=== PATIENT | female | born 1980 | race Caucasian/White ===

== ENCOUNTER → 2017-01-17 | Outpatient (CLI) | payer MEDICAID ==
[~2017-01-17] MED LIST: ALPR.5T PO; ALPR1T PO; AMPH20TA2 PO; AMPH30TA2 PO; ASP81CT; BUPR300T; CATHETER FLUSH 10 ML SYR IV PRN; CYCL10TA9; HYDR-34 PO; HYDR-757 PO; IBP600T1 PO; IOHEXOL 350 MG/ML 100 ML (OMNIPAQUE 350) VIAL IV ONE; METH4TAB PO; NS 100 ML (IVPB) BAG IV ONE; OMG1KC; PHEN37.555; PRD20T PO; PRED10TA PO; PREN1TAB39 PO; Prenatal Vitamin; SITA1TAB6; TRAM-42 PO
--- NOTE | 2017-01-17 12:06 | Diagnostic Imaging Report ---
PROCEDURE: CT abdomen and pelvis with contrast. TECHNIQUE: Multiple contiguous axial images were obtained through the abdomen and pelvis after administration of intravenous contrast. INDICATION: Constipation, abdominal pain. 100 mL of Omnipaque 350 is administered intravenously. FINDINGS: The lung bases demonstrate no significant consolidation. The liver, the spleen, the adrenal glands, the pancreas, and adrenals appear unremarkable. The kidneys have symmetric enhancement and contrast excretion. There is no hydronephrosis. The urinary bladder appears unremarkable. The abdominal aorta is normal in caliber. No para-aortic significantly enlarged lymph node is seen. There is a tiny fat-containing umbilical hernia. There is no bowel obstruction. Small amounts of fecal material seen in the colon. There is a suture line seen near the base of the cecum presumably related to prior appendectomy. Correlate with surgical history. The uterus and adnexa appear grossly unremarkable. Suture material is suggested near the right adnexa. The osseous structures demonstrate prominent S-shaped scoliosis in the thoracolumbar spine convex to the right in the lumbar spine. IMPRESSION: 1. Tiny fat-containing umbilical hernia. 2. Prominent S-shaped thoracolumbar scoliosis. Dictated by: Dictated on workstation # [id number]
== END ==
LOC: RAD 09:22
PROVIDERS: ATTEND Family Medicine
DX: K59.00 Constipation, unspecified (principal)
CPT/HCPCS: 74177

== ENCOUNTER → 2017-05-05 | Outpatient (CLI) | payer BC, MEDICAID ==
[~2017-05-05] MED LIST changes: -CATHETER FLUSH 10 ML SYR IV PRN; -IOHEXOL 350 MG/ML 100 ML (OMNIPAQUE 350) VIAL IV ONE; -NS 100 ML (IVPB) BAG IV ONE
--- NOTE | 2017-05-05 13:40 | Diagnostic Imaging Report ---
PROCEDURE: MRI right joint lower extremity without contrast. TECHNIQUE: Multiplanar, multisequence non contrast-enhanced MRI of the right lower extremity was accomplished. INDICATION: Right knee pain. FINDINGS: There is no significant joint effusion and no Smith's cyst. The extensor mechanism is normal. The ACL and the PCL are both normal. There is a complex tear involving the posterior horn of the medial meniscus extending to the body and to the posterior root. The lateral meniscus is normal. The MCL and the lateral collateral ligament complex appear intact. There is a mild marrow edema seen in the medial tibial condyle. Parallel to the surface of the medial tibial plateau with subchondral sclerosis seen underneath the surface. There is no loss of congruity of the joint or cortical step-off however. This could be sequela of prior injury, perhaps a late subacute contusion and minimal cortical impaction of the medial plateau. There are no cartilage defects or injury identified. There is however fissuring in the medial compartment cartilage. The lateral compartment cartilage appears intact. The patellofemoral compartment cartilage demonstrates mild fissuring and increased signal particularly in the lateral facet. The muscles around the knee have normal signal and bulk. IMPRESSION: 1. Complex tear involving the posterior horn of the medial meniscus with extension to the root and to the body of the meniscus. 2. Mild marrow edema and low intensity at the subcortical bone in the medial tibial plateau is favored to be secondary to a late subacute injury. 3. 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 Dictated by: Dictated on workstation # [id number]
== END ==
LOC: RAD 10:59
PROVIDERS: ATTEND Family Medicine
DX: S83.231A Complex tear of medial meniscus, current injury, right knee, initial encounter (principal); M17.11 Unilateral primary osteoarthritis, right knee; X58.XXXA Exposure to other specified factors, initial encounter; Y99.8 Other external cause status
CPT/HCPCS: 73721

== ENCOUNTER → 2017-09-01 | Outpatient (CLI) | payer BC ==
--- NOTE | 2017-09-01 14:44 | Diagnostic Imaging Report ---
Transabdominal and transvaginal pelvic ultrasound. INDICATION: Pelvic pain. FINDINGS: The uterus is 7.4 x 4.4 x 4 cm. The endometrial stripe is 0.9 cm in thickness. The myometrium is slightly heterogeneous with no focal mass. The right ovary is 3.9 x 4 x 3.2 cm. The left ovary is 2.8 x 3.2 x 1.9 cm. There is a right ovarian cyst measuring 3.5 x 4 x 3.2 cm with mild internal septation but otherwise no definite solid nodule or internal vascularity. There are arterial and venous waveforms demonstrated in the ovarian tissue around this lesion. The left ovary demonstrates a 1.3 cm dominant follicle with simple appearance and normal vascularity. IMPRESSION: Mildly complicated cystic lesion in the right ovary is seen measuring up to 4 CM in size. A follow-up exam in six weeks is recommended to ensure resolution. Dictated by: Dictated on workstation # [id number]
== END ==
LOC: RAD 11:58
PROVIDERS: ATTEND Nurse Practitioner
DX: N83.201 Unspecified ovarian cyst, right side (principal); N91.2 Amenorrhea, unspecified
CPT/HCPCS: 76830; 76856

== ENCOUNTER 2017-09-20 10:36 | Emergency (ER) | payer BC ==
[~2017-09-20] VITALS: Ht 157.5 cm; Wt 91.6 kg
[2017-09-20 11:00] LABS: BASOPHILS % (AUTO) 0 % (0-10); EOSINOPHILS % (AUTO) 0 % (0-10); LYMPHOCYTES # (AUTO) 1.5 X 10^3 (1.0-4.0); LYMPHOCYTES % (AUTO) 10 % (12-44); MEAN CORPUSCULAR HEMOGLOBIN 32 PG (25-34); MEAN CORPUSCULAR HGB CONC 36 G/DL (32-36); MEAN CORPUSCULAR VOLUME 89 FL (80-99); MEAN PLATELET VOLUME 8.9 FL (7.4-10.4); MONOCYTES # (AUTO) 0.7 X 10^3 (0.0-1.0); MONOCYTES % (AUTO) 5 % (0-12); NEUTROPHILS # (AUTO) 12.4 X 10^3 (1.8-7.8); NEUTROPHILS % (AUTO) 85 % (42-75); PLATELET COUNT 242 10^3/uL (130-400); RED BLOOD COUNT 4.15 10^6/uL (4.35-5.85); RED CELL DISTRIBUTION WIDTH 11.8 % (10.0-14.5); WHITE BLOOD COUNT 14.6 10^3/uL (4.3-11.0)
[2017-09-20] MEDS ORDERED: ASPIRIN 81 MG CHEW (CHILDREN'S ASA) PO ONE (11:00)
--- NOTE | 2017-09-20 11:12 | ED Chest Pain ---
General Chief Complaint: Respiratory Problems Stated Complaint: SOA/CHEST DISCOMFORT Source: patient Exam Limitations: no limitations History of Present Illness Time seen by provider: 11:09 Initial Comments To ER with reports of shortness of breath and chest discomfort. She's had these symptoms since 5 p.m. last night when leaving work. The discomfort extends from the xiphoid process inferiorly down to the mid abdomen. She has tightness between her shoulder blades and tightness in her neck. She also reports that her chest feels tight and she is short of breath. Because of a very strong family history of cardiac disease including father with NC at the age of 44 and uncle who at the age of mid 30s she states, she had a heart catheter done here in [address] Bryant. This showed angiographically normal coronary arteries. She denies any unilateral leg swelling. No history of DVT. She did just start oral contraceptive use 2 days ago and has only had 2 doses. Timing/Duration: 12-24 hours Severity/Quality: pressure Activities at Onset: none ASA po LOAN SECRETARY: No NTG SL LOAN SECRETARY: No Associated Symptoms: shortness of breath Allergies and Home Medications Allergies Coded Allergies: No Known Drug Allergies (Verified , 12/12/07) Home Medications Atorvastatin Calcium 20 Mg Tablet, 20 MG PO HS, #30 Prescribed by: CEASAR VALDEZ on 09/20/17 8050 [[place]] , (Reported) Review of Systems Constitutional: see HPI EENTM: No Symptoms Reported Respiratory: See HPI, Denies Cough, Denies Orthopnea, Shortness of Air, Denies Wheezing Cardiovascular: See HPI, Chest Pain Gastrointestinal: See HPI, Abdominal Pain, Nausea, Vomiting Genitourinary: No Symptoms Reported Musculoskeletal: no symptoms reported Skin: no symptoms reported Psychiatric/Neurological: No Symptoms Reported Endocrine: No Symptoms Reported Hematologic/Lymphatic: No Symptoms Reported Past Hdiikyf-Xipjez-Dxelsp Hx Patient Social History Type Used: Cigarettes Recent Foreign Travel: No Contact w/Someone Who Travel: No Recent Hopitalizations: Yes (12/12/07 ECTOPICAL ) Immunizations Up To Date Tetanus Booster (TDap): Less than 5yrs Date of Influenza Vaccine: Jul 31, 2013 Seasonal Allergies Seasonal Allergies: No Surgeries Surgeries: Adenoidectomy, Appendectomy, Cardiac, Ear Surgery, Orthopedic, Tonsillectomy Cardiovascular Cardiac Disorders: Heart Murmur Reproductive System Hx Reproductive Disorders: Yes (ECTOPIC ) Sexually Transmitted Disease: No HIV/AIDS: No Female Reproductive Disorders: Denies Gastrointestinal Gastrointestinal Disorders: Gastroesophageal Reflux Musculoskeletal Musculoskeletal Disorders: Scoliosis Psychosocial Behavioral Health Disorders: ADD/ADHD Family Medical History Significant Family History: Heart Disease, CAD Under 55 Years Old Physical Exam Vital Signs Vital Sign - Last 12Hours 09/20/17 10:44 Temp 98.6 Pulse 112 Resp 18 B/P (MAP) 108/72 Pulse Ox 98 O2 Delivery Room Air Capillary Refill : General Appearance: No Apparent Distress, WD/WN HEENT: PERRL/EOMI, TMs Normal Neck: Full Range of Motion, Normal Inspection Respiratory: Normal Breath Sounds, No Accessory Muscle Use, No Respiratory Distress Cardiovascular: Normal Peripheral Pulses, Tachycardia Gastrointestinal: Normal Bowel Sounds, Non Tender, Soft Extremity: Normal Capillary Refill, Normal Inspection Neurologic/Psychiatric: Alert, Oriented x3, No Motor/Sensory Deficits Skin: Normal Color, Warm/Dry Progress/Results/Core Measures Results/Orders Lab Results Laboratory Tests Test 09/20/17 10:50 09/20/17 11:00 09/20/17 13:52 Range/Units White Blood Count 14.6 H 4.3-11.0 10^3/uL Red Blood Count 4.15 L 4.35-5.85 10^6/uL Hemoglobin 13.4 11.5-16.0 G/DL Hematocrit 37 35-52 % Mean Corpuscular Volume 89 80-99 FL Mean Corpuscular Hemoglobin 32 25-34 PG Mean Corpuscular Hemoglobin Concent 36 32-36 G/DL Red Cell Distribution Width 11.8 10.0-14.5 % Platelet Count 242 130-400 10^3/uL Mean Platelet Volume 8.9 7.4-10.4 FL Neutrophils (%) (Auto) 85 H 42-75 % Lymphocytes (%) (Auto) 10 L 12-44 % Monocytes (%) (Auto) 5 0-12 % Eosinophils (%) (Auto) 0 0-10 % Basophils (%) (Auto) 0 0-10 % Neutrophils # (Auto) 12.4 H 1.8-7.8 X 10^3 Lymphocytes # (Auto) 1.5 1.0-4.0 X 10^3 Monocytes # (Auto) 0.7 0.0-1.0 X 10^3 Eosinophils # (Auto) 0.0 0.0-0.3 10^3/uL Basophils # (Auto) 0.0 0.0-0.1 10^3/uL Neutrophils % (Manual) 89 % Lymphocytes % (Manual) 7 % Monocytes % (Manual) 2 % Band Neutrophils 2 % Prothrombin Time 14.4 12.2-14.7 SEC INR Comment 1.1 0.8-1.4 Activated Partial Thromboplast Time 32 24-35 SEC Sodium Level 139 135-145 MMOL/L Potassium Level 3.7 3.6-5.0 MMOL/L Chloride Level 107 98-107 MMOL/L Carbon Dioxide Level 22 21-32 MMOL/L Anion Gap 10 5-14 MMOL/L Blood Urea Nitrogen 9 7-18 MG/DL Creatinine 0.80 0.60-1.30 MG/DL Estimat Glomerular Filtration Rate > 60 BUN/Creatinine Ratio 11 Glucose Level 92 70-105 MG/DL Calcium Level 9.1 8.5-10.1 MG/DL Magnesium Level 1.8 1.8-2.4 MG/DL Total Bilirubin 0.6 0.1-1.0 MG/DL Aspartate Amino Transf (AST/SGOT) 13 5-34 U/L Alanine Aminotransferase (ALT/SGPT) 23 0-55 U/L Alkaline Phosphatase 73 40-136 U/L Myoglobin 31.7 10.0-92.0 NG/ML Troponin I < 0.30 < 0.30 <0.30 NG/ML Total Protein 7.4 6.4-8.2 GM/DL Albumin 4.2 3.2-4.5 GM/DL Triglycerides Level 151 H <150 MG/DL Cholesterol Level 186 < 200 MG/DL LDL Cholesterol Direct 141 H 1-129 MG/DL VLDL Cholesterol 30 5-40 MG/DL HDL Cholesterol 36 L 40-60 MG/DL D-Dimer 0.37 0.00-0.49 UG/ML Lipase 19 8-78 U/L My Orders Orders - CEASAR VALDEZ FOOT TENDER Cbc With Automated Diff (09/20/17 10:52) Magnesium (09/20/17 10:52) Chest 1 View, Ap/Pa Only (09/20/17 10:52) Ekg Tracing (09/20/17 10:52) Cardiac Profile 1 (09/20/17 10:52) Comprehensive Metabolic Panel (09/20/17 10:52) Myoglobin Serum (09/20/17 10:52) Protime With Inr (09/20/17 10:52) Partial Thromboplastin Time (09/20/17 10:52) O2 (09/20/17 10:52) Monitor-Rhythm Ecg Trace Only (09/20/17 10:52) Lipid Panel (09/21/17 06:00) Aspirin Chewable Tablet (Baby Aspirin Ch (09/20/17 11:00) Saline Lock/Iv-Start (09/20/17 10:52) Fibrin Degradation Products (09/20/17 11:00) Lipase (09/20/17 11:00) Manual Differential (09/20/17 10:50) Metoprolol Succinate (Xl) Tab (Toprol Xl (09/20/17 11:15) Ct Angio Chst/Abd/Pelv W (09/20/17 11:27) Iohexol Injection (Omnipaque 350 Mg/Ml 1 (09/20/17 11:30) Ns (Ivpb) (Sodium Chloride 0.9% Ivpb Bag (09/20/17 11:30) Lipid Panel (09/20/17 12:43) Troponin I (09/20/17 13:50) Medications Given in ED Current Medications Medications Dose Ordered Sig/Rosalind Route Start Time Stop Time Status Last Admin Dose Admin Aspirin 324 mg ONCE ONCE PO 09/20/17 11:00 09/20/17 11:01 DC 09/20/17 11:02 324 MG Iohexol 150 ml ONCE ONCE IV 09/20/17 11:30 09/20/17 11:33 DC 09/20/17 12:08 125 ML Metoprolol Succinate 25 mg ONCE ONCE PO 09/20/17 11:15 09/20/17 11:16 DC 09/20/17 11:32 25 MG Sodium Chloride 100 ml ONCE ONCE IV 09/20/17 11:30 09/20/17 11:33 DC 09/20/17 12:08 80 ML Vital Signs/I&O Vital Sign - Last 12Hours 09/20/17 10:44 Temp 98.6 Pulse 112 Resp 18 B/P (MAP) 108/72 Pulse Ox 98 O2 Delivery Room Air Diagnostic Imaging Diagonstic Imaging: CT Plain Films/CT/US/NM/MRI: chest Comments NAME: [facility]ÁRBARA [facility]MAN [facility] REC#: [id number] PT STATUS: REG ER : 1980 PHYSICIAN: CEASAR VALDEZ APRN ADMIT DATE: 09/20/17/ER Draft Date of Exam:09/20/17 CT ANGIO CHST/ABD/PELV W PROCEDURE: CT angiography of the chest with contrast and CT abdomen and pelvis with contrast. TECHNIQUE: Multiple contiguous axial images were obtained through the chest, abdomen and pelvis after administration of intravenous contrast. Reconstructed MIP CT angiography acquisitions of the aorta were then performed. INDICATION: Shortness of breath. Chest discomfort. Umbilical hernia. History of ectopic . COMPARISON: 01/17/2017. FINDINGS: CTA chest: There is good opacification of the pulmonary arteries with no filling defects to suggest pulmonary embolism. There is minimal ectasia in the ascending aorta measuring up to 3.5 cm. The aortic arch and descending aorta are normal in caliber. The heart size is normal. No pericardial or pleural effusion. The lungs demonstrate no significant consolidation, mass or suspicious nodule. There is an S-shaped scoliosis in the thoracolumbar spine with associated prominent degenerative change along the concavity of the scoliosis in the lower thoracic levels. CT abdomen and pelvis: The liver, the gallbladder, the spleen, the adrenal glands, and the pancreas appear unremarkable. The kidneys have symmetric enhancement with no focal renal parenchymal lesion. No hydronephrosis. The abdominal aorta is normal in caliber. Mild atherosclerotic calcified plaque is seen in the distal abdominal aorta. No significant stenosis. The celiac trunk, the SMA, the renal arteries and CARITO are patent. The iliac arteries appear unremarkable. No para-aortic significantly enlarged lymph node is seen. There is a small fat-containing umbilical hernia. Staple line along the base of the cecum is probably secondary to prior appendectomy. There is prominent diverticulosis. No diverticulitis. The osseous structures demonstrate right convexity in the lumbar spine as part of the S-shaped scoliosis. IMPRESSION: CTA chest: Borderline ectasia in the ascending aorta measuring 3.[address] abdomen and pelvis: 1. Small fat-containing umbilical hernia. 2. Diverticulosis in the sigmoid colon with no evidence of diverticulitis. Dictated on workstation # [id number] Dict: 09/20/17 1224 Trans: 09/20/17 1253 EDYTA [id number] Interpreted by: MELINDA COLLADO MD Electronically signed by: Departure Communication (Admissions) Progress Notes Dr. Del Angel happened to be in the emergency room so I did have him evaluate the patient. He agrees that the EKG is normal except for some mild tachycardia which could be secondary to anxiety. Leukocytosis could be secondary to a viral syndrome as the patient does report that she has aches in her legs, nasal congestion and a slight sore throat. He would recommend adding a lipid panel to blood and labs, 3 hour troponin rule out and then follow up with him in the clinic next week. I did make an appointment for the patient with Dr. Del Angel at 1115 a.m. September 26 Impression Impression: Primary Impression: Chest pain Additional Impressions: Hyperlipidemia Viral syndrome Disposition: HOME, SELF-CARE Condition: Stable Departure-Patient Inst. Decision time for Depature: 12:47 Referrals: ALYSSA COTTRELL MD (PCP/Family) Primary Care Physician Lindsey DEL ANGEL MD Patient Instructions: Chest Pain Add. Discharge Instructions: 1. Your scheduled to see Dr. Del Angel September 26 at 1115 a.m. 2. Return to ER for any concerns such as worsening chest pain, other concerns All discharge instructions reviewed with patient and/or family. Voiced understanding. Scripts Atorvastatin Calcium (Lipitor) 20 Mg Tablet 20 MG PO HS, #30 TAB Prov: CEASAR VALDEZ APRN 09/20/17 Work/School Note: Work Release Form Date Seen in the Emergency Department: Sep 20, 2017 Return to Work: Sep 23, 2017 Copy Copies To 1: Lindsey DEL ANGEL MD, PETER J APRN Sep 20, 2017 11:12
[2017-09-20 11:13] LABS: INR 1.1 (0.8-1.4); PROTHROMBIN TIME PATIENT 14.4 SEC (12.2-14.7)
[2017-09-20] MEDS ORDERED: WELLBURTIN (11:19)
[2017-09-20 11:22] LABS: ALANINE AMINOTRANSFERASE 23 U/L (0-55); ALBUMIN 4.2 GM/DL (3.2-4.5); ANION GAP 10 MMOL/L (5-14); ASPARTATE AMINO TRANSFERASE 13 U/L (5-34); BILIRUBIN,TOTAL 0.6 MG/DL (0.1-1.0); BLOOD UREA NITROGEN 9 MG/DL (7-18); BUN/CREATININE RATIO 11; CALCIUM 9.1 MG/DL (8.5-10.1); CARBON DIOXIDE 22 MMOL/L (21-32); CHLORIDE 107 MMOL/L (98-107); GFR ESTIMATED > 60; GLUCOSE 92 MG/DL (70-105); MAGNESIUM 1.8 MG/DL (1.8-2.4); POTASSIUM 3.7 MMOL/L (3.6-5.0); SODIUM 139 MMOL/L (135-145); TOTAL PROTEIN 7.4 GM/DL (6.4-8.2)
[2017-09-20 11:29] LABS: MYOGLOBIN SERUM 31.7 NG/ML (10.0-92.0)
[2017-09-20] MEDS ORDERED: IOHEXOL 350 MG/ML 150 ML (OMNIPAQUE 350) VIAL IV ONE (11:30)
[2017-09-20] MEDS ORDERED: NS 100 ML (IVPB) BAG IV ONE (11:30)
--- NOTE | 2017-09-20 11:43 | Diagnostic Imaging Report ---
EXAMINATION: Portable upright radiograph of the chest. INDICATION: Chest pressure. FINDINGS: The lungs are clear. The heart size is normal. No effusion or pneumothorax. The mediastinum and rené appear unremarkable. There is scoliosis in the thoracolumbar spine seen. IMPRESSION: No acute process. Dictated by: Dictated on workstation # [id number]
[2017-09-20 12:02] LABS: BAND NEUTROPHILS 2 %; LYMPHOCYTES % (MANUAL) 7 %; NEUTROPHILS % (MANUAL) 89 %
--- NOTE | 2017-09-20 12:54 | Diagnostic Imaging Report ---
PROCEDURE: CT angiography of the chest with contrast and CT abdomen and pelvis with contrast. TECHNIQUE: Multiple contiguous axial images were obtained through the chest, abdomen and pelvis after administration of intravenous contrast. Reconstructed MIP CT angiography acquisitions of the aorta were then performed. INDICATION: Shortness of breath. Chest discomfort. Umbilical hernia. History of ectopic . COMPARISON: 01/17/2017. FINDINGS: CTA chest: There is good opacification of the pulmonary arteries with no filling defects to suggest pulmonary embolism. There is minimal ectasia in the ascending aorta measuring up to 3.5 cm. The aortic arch and descending aorta are normal in caliber. The heart size is normal. No pericardial or pleural effusion. The lungs demonstrate no significant consolidation, mass or suspicious nodule. There is an S-shaped scoliosis in the thoracolumbar spine with associated prominent degenerative change along the concavity of the scoliosis in the lower thoracic levels. CT abdomen and pelvis: The liver, the gallbladder, the spleen, the adrenal glands, and the pancreas appear unremarkable. The kidneys have symmetric enhancement with no focal renal parenchymal lesion. No hydronephrosis. The abdominal aorta is normal in caliber. Mild atherosclerotic calcified plaque is seen in the distal abdominal aorta. No significant stenosis. The celiac trunk, the SMA, the renal arteries and CARIOT are patent. The iliac arteries appear unremarkable. No para-aortic significantly enlarged lymph node is seen. There is a small fat-containing umbilical hernia. Staple line along the base of the cecum is probably secondary to prior appendectomy. There is prominent diverticulosis. No diverticulitis. The osseous structures demonstrate right convexity in the lumbar spine as part of the S-shaped scoliosis. IMPRESSION: CTA chest: Borderline ectasia in the ascending aorta measuring 3.[address] abdomen and pelvis: 1. Small fat-containing umbilical hernia. 2. Diverticulosis in the sigmoid colon with no evidence of diverticulitis. Dictated by: Dictated on workstation # [id number]
--- NOTE | 2017-09-20 12:55 | Consultation-Cardiology ---
HPI-Cardiology Cardiology Consultation: Date of Consultation 09/20/17 Date of Admission Attending Physician Admitting Physician Loida Christianson MD Consulting Physician Lindsey DEL ANGEL MD HPI: Time Seen by Provider: 12:55 Chief Complaint: chest pain this is a 37-year-old lady with significant family history of premature CAD. Her father had his first SD at the age of 44. She also has history of sudden cardiac in the family. Her uncle at the age of 36 due to no obvious cause. Few years ago she had an episode of chest pain for which she had coronary angiography which according to the patient was within normal limits. She denies any other cardiac issues and no past medical history. She has been an active smoker until early in the year when she quit smoking. She presents with chest pain episode. There is no radiation. There is no exacerbation or relieving factor. It is in the chest. Vague description. However it is associated with throat discomfort and weakness in the legs. She also feels that she may be having the flu. She denies any significant other cardiac symptoms, especially she denies syncope, near-syncope, palpitation, shortness of breath. Review of Systems-Cardiology Review of Systems Constitutional: As described under HPI, malaise, tiredness Eyes: No As described under HPI, No no symptoms reported, No blindness, No blurred vision, No contact lenses, No drainage, No decreased acuity, No foreign body sensation, No glasses, No inflammation, No pain, No photophobia, No previous injury, No shadows, No tunnel vision, No other, No vision change Ears/Nose/Throat: throat pain Respiratory: No no symptoms reported, No As described under HPI, No cough, No orthopnea, No shortness of breath, No SOB with excertion, No SOB at rest, No stridor, No wheezing, No other Cardiovascular: chest pain Gastrointestinal: No no symptoms reported, No As described under HPI, No abdomen distended, No abdominal pain, No blood streaked bowels, No constipation , No diarrhea, No difficulty swallowing, No nausea, No poor appetite, No poor fluid intake, No rectal bleeding, No vomiting, No other, No nausea/vomiting/ diarrhea, No stool coloration changes Genitourinary: No no symptoms reported, No As described under HPI, No burning, No dysuria, No discharge, No frequency, No flank pain, No hematuria, No incontinence, No pain, No urgency, No other, No urine frequency changes, No urine coloration changes Musculoskeletal: As describe under HPI Skin: No no symptoms reported, No As described under HPI, No change in color, No change in hair/nails, No dryness, No lesions, No lumps, No rash, No other, No skin related problems, No ulcerations, No rash on exposed areas, No ulcerations on exposed areas Psychiatric/Neurological: No no symptoms reported, No As described under HPI, No anxiety, No depression, No emotional problems, No headache, No numbness, No pre-existing deficit, No seizure, No tingling, No tremors, No weakness, No other , No focal weakness, No syncope Hematologic: No no symptoms reported, No As described under HPI, No anemia, No blood clots, No easy bleeding, No easy bruising, No swollen glands, No other, No bleeding abnormalities HVY-Ggzrsx-Yspspt Hx Patient Social History Alcohol Use: Occasionally Uses Recreational Drug Use: No Smoking Status: Former Smoker Type Used: Cigarettes Recent Foreign Travel: No Recent Infectious Disease Expo: No Hospitalization with Isolation: Denies Immunizations Up To Date Tetanus Booster (TDap): Less than 5yrs Date of Influenza Vaccine: Jul 31, 2013 Past Medical History PMH As described under Assessment. Allergies and Home Medications Allergies Coded Allergies: No Known Drug Allergies (Verified , 12/12/07) Home Medications [Wellburtin] , (Reported) Physical Exam-Cardiology Physical Exam Vital Signs/I&O Vital Sign - Last 12Hours 09/20/17 10:44 Temp 98.6 Pulse 112 Resp 18 B/P (MAP) 108/72 Pulse Ox 98 O2 Delivery Room Air Capillary Refill : Less Than 3 Seconds Data Review Labs Laboratory Tests 09/20/17 10:50: White Blood Count 14.6H, Red Blood Count 4.15L, Hemoglobin 13.4, Hematocrit 37, Mean Corpuscular Volume 89, Mean Corpuscular Hemoglobin 32, Mean Corpuscular Hemoglobin Concent 36, Red Cell Distribution Width 11.8, Platelet Count 242, Mean Platelet Volume 8.9, Neutrophils (%) (Auto) 85H, Lymphocytes (%) (Auto) 10L , Monocytes (%) (Auto) 5, Eosinophils (%) (Auto) 0, Basophils (%) (Auto) 0, Neutrophils # (Auto) 12.4H, Lymphocytes # (Auto) 1.5, Monocytes # (Auto) 0.7, Eosinophils # (Auto) 0.0, Basophils # (Auto) 0.0, Neutrophils % (Manual) 89, Lymphocytes % (Manual) 7, Monocytes % (Manual) 2, Band Neutrophils 2, Prothrombin Time 14.4, INR Comment 1.1, Activated Partial Thromboplast Time 32, Sodium Level 139, Potassium Level 3.7, Chloride Level 107, Carbon Dioxide Level 22, Anion Gap 10, Blood Urea Nitrogen 9, Creatinine 0.80, Estimat Glomerular Filtration Rate > 60, BUN/Creatinine Ratio 11, Glucose Level 92, Calcium Level 9.1, Magnesium Level 1.8, Total Bilirubin 0.6, Aspartate Amino Transf (AST/SGOT ) 13, Alanine Aminotransferase (ALT/SGPT) 23, Alkaline Phosphatase 73, Myoglobin 31.7, Troponin I < 0.30, Total Protein 7.4, Albumin 4.2, Triglycerides Level 151H, Cholesterol Level 186, LDL Cholesterol Direct 141H, VLDL Cholesterol 30, HDL Cholesterol 36L 09/20/17 11:00: D-Dimer 0.37, Lipase 19 Radiology VS - Last 72 Hours, by Label 09/20/17 10:44 Temp 98.6 Pulse 112 Resp 18 B/P (MAP) 108/72 Pulse Ox 98 O2 Delivery Room Air ECG Impression ECG Initial ECG Rhythm: Normal Sinus Initial ECG Impression: Normal A/P-Cardiology Assessment/Admission Diagnosis chest pain, Significant family history of premature CAD and sudden cardiac , Possible viral syndrome with leukocytosis, Hyperlipidemia, Active smoking Plan chest pain, Significant family history of premature CAD and sudden cardiac , Possible viral syndrome with leukocytosis, Hyperlipidemia, Active smoking - first set of troponin is negative. Awaiting second troponin. EKG does not have any significant ST deviation. No other acute cardiac or pulmonary pathology on CT scan. No evidence of aortic dissection or pulmonary embolism. If second set of troponin is negative, she can be discharged from a cardiology perspective and follow-up in my office next week. We will set up echocardiogram and nuclear stress test considering her significant family history of premature CAD and sudden cardiac . Next - Her symptoms could be possibly a viral syndrome with leukocytosis. I will defer to the ER team for further management. - Significantly elevated lipid profile. I will recommend starting Lipitor 40 mg daily. - Smoking cessation behavior was strongly recommended. Thank you for your consultation. Please call me if you have any questions. Pascual Del Angel MD, FACP, FACC, FSCAI, FHRS, CCDS Interventional Cardiology Cardiac Electrophysiology Vascular Medicine and Endovascular Interventions Clinical Quality Measures AMI/AHF: ASA po Prior to arrival: Lindsey Bryant MD Sep 20, 2017 12:55
[2017-09-20 13:00] LABS: CHOLESTEROL 186 MG/DL (< 200); DIRECT LDL 141 MG/DL (1-129); TRIGLYCERIDES 151 MG/DL (<150); VLDL CHOLESTEROL 30 MG/DL (5-40)
[2017-09-20] MEDS ORDERED: ATOR20TA49 PO (14:25)
[2017-09-20 14:58] VITALS: BP 127/95
== END 2017-09-20 14:52 | disposition home or self-care (01) ==
LOC: EDUNIT# 10:36 → ER 10:41
DX: R07.89 Other chest pain (principal); E78.5 Hyperlipidemia, unspecified; B34.9 Viral infection, unspecified; K21.9 Gastro-esophageal reflux disease without esophagitis; F90.9 Attention-deficit hyperactivity disorder, unspecified type; Z82.49 Family history of ischemic heart disease and other diseases of the circulatory system; Z90.49 Acquired absence of other specified parts of digestive tract; Z90.89 Acquired absence of other organs
CPT/HCPCS: 36415; 71010; 71275; 74174; 80053; 80061; 83690; 83735; 83874; 84484; 85007; 85027; 85379; 85610; 85730; 93005; 93041

== ENCOUNTER → 2017-11-21 | Outpatient (CLI) | payer BC ==
[~2017-11-21] MED LIST changes: +ATOR20TA49 PO; +WELLBURTIN
--- NOTE | 2017-11-21 17:10 | Diagnostic Imaging Report ---
US NON OB PELVIS COMP/TRANSVAG Technique: Transabdominal and transvaginal grayscale, color Doppler and pulse duplex imaging of the pelvis was performed. Indication: Amenorrhea. Surveillance imaging of ovarian cyst. Findings: The uterus measures 7.2 x 5.2 x 3.8 cm. The myometrium is normal in echogenicity without discrete mass. The endometrium measures up to 0.6 cm where visualized, and is normal in echogenicity. The right ovary measures 1.8 x 2.0 x 1.1 cm. The left ovary measures 4.8 x 3.9 x 3.1 cm. The large cyst within the right ovary has resolved and there are a few subcentimeter follicles within the right ovary on today's exam. Normal blood flow seen in the right ovary by color Doppler and spectral flow. In the left ovary, there is now a dominant follicle which measures 3.7 x 3.2 cm. Normal blood flow seen within the left ovary by color Doppler imaging. Trace simple free pelvic fluid is likely physiologic. Impression: 1. Physiologic follicles within both ovaries. No concerning ovarian or adnexal mass. 2. Normal endometrial echogenicity and thickness. Dictated by: Dictated on workstation # [id number]
== END ==
LOC: RAD 16:34
PROVIDERS: ATTEND Nurse Practitioner
DX: Z09 Encounter for follow-up examination after completed treatment for conditions other than malignant neoplasm (principal); N91.2 Amenorrhea, unspecified
CPT/HCPCS: 76830; 76856

== ENCOUNTER 2017-12-21 05:39 | Outpatient (CLI) | payer BC ==
[~2017-12-21] VITALS: Ht 157.5 cm; Wt 91.6 kg
[2017-12-21] MEDS ORDERED: BUPR100T7 PO (09:41)
== END 2017-12-21 10:08 ==
LOC: PREOP 05:39
PROVIDERS: ATTEND Obstetrics & Gynecology
DX: Z01.818 Encounter for other preprocedural examination (principal); N81.4 Uterovaginal prolapse, unspecified; N83.202 Unspecified ovarian cyst, left side; K42.9 Umbilical hernia without obstruction or gangrene

== ENCOUNTER → 2018-03-09 | Outpatient (CLI) | payer BC, OTHER ==
[~2018-03-09] MED LIST changes: +BARIUM SUSPENSION 105% (LIQUID POLIBAR PLUS) 240 ML/DOSE PO ONE; +BARIUM SUSPENSION 60% (LIQUID EZ PAQUE) 240 ML DOSE PO ONE; +BUPR100T7 PO; +DOCU100C37 PO; +IBUP-1773 PO; +SIME80TA16 PO
--- NOTE | 2018-03-09 17:20 | Diagnostic Imaging Report ---
INDICATION: Gastric sleeve. EXAMINATION: Upper GI exam. Double contrast exam was performed. COMPARISON: There are no prior studies available for comparison. FINDINGS: The preliminary film reveals levoscoliosis of the lower thoracic spine and dextroscoliosis of the lumbar spine. There is no acute abnormality evident. Patient swallowed the contrast material without difficulty. There was no delay or obstruction of passage of barium through the esophagus. There is no sign of a hiatal hernia or gastroesophageal reflux. The stomach shows good distensibility and motility. There is no mass or ulceration identified. The duodenal bulb and proximal small bowel are unremarkable. IMPRESSION: 1. There is no evidence for a hiatal hernia or for gastroesophageal reflux. 2. There is no gastric mass or ulceration evident. 3. The duodenal bulb and proximal small bowel are unremarkable. Dictated by: Dictated on workstation # [id number]
== END ==
LOC: RAD 10:50
PROVIDERS: ATTEND Surgery
DX: K21.0 Gastro-esophageal reflux disease with esophagitis (principal); Z98.84 Bariatric surgery status
CPT/HCPCS: 74241

== ENCOUNTER 2018-05-04 06:50 | Inpatient (IN) | payer BC, OTHER ==
[~2018-05-04] VITALS: Ht 157.5 cm; Wt 102.5 kg
[~2018-05-04 06:50] MED LIST changes: -BARIUM SUSPENSION 105% (LIQUID POLIBAR PLUS) 240 ML/DOSE PO ONE; -BARIUM SUSPENSION 60% (LIQUID EZ PAQUE) 240 ML DOSE PO ONE
[2018-05-04] MEDS ORDERED: BUP/EPI 0.5% 1:200,000 (SENSORCAINE) 30 ML VIAL ONE ×2 (07:13→07:22)
[2018-05-04 07:15] VITALS: BP 111/67
[2018-05-04] MEDS ORDERED: ROCURONIUM 10 MG/ML 5 ML SYRINGE IV ONE ×2 (07:15→09:25)
[2018-05-04] MEDS ORDERED: ONDANSETRON 4 MG/2 ML (SDV) Z0FRAN ONE ×3 (07:15→22:38)
[2018-05-04] MEDS ORDERED: DEXAMETHASONE 10 MG/ML (DECADRON) 1 ML VIAL ONE (07:15)
[2018-05-04] MEDS ORDERED: MIDAZOLAM 2 MG/2 ML (VERSED) VIAL ONE (07:15)
[2018-05-04] MEDS ORDERED: LIDOCAINE PF 2% 5 ML (XYLOCAINE) VIAL ONE (07:15)
[2018-05-04] MEDS ORDERED: proPOfol 200 MG/20 ML (DIPRIVAN) VIAL IV ONE (07:15)
[2018-05-04] MEDS ORDERED: SEVOFLURANE (ULTANE) 15 ML INHAL SOLN ONE (07:15)
[2018-05-04] MEDS ORDERED: fentaNYL INJECTION 100 MCG/2 ML AMP ONE ×2 (07:16→09:36)
[2018-05-04] MEDS ORDERED: NS (IVPB) 50 ML ONE (07:20)
[2018-05-04] MEDS ORDERED: ceFAZolin 1,000 MG (ANCEF) VIAL ONE (07:20)
[2018-05-04] MEDS: LACTATED RINGERS 1,000 ML IV PRN ×3 (07:20→09:40)
[2018-05-04] MEDS ORDERED: ceFAZolin INJECTION 1,000 MG in NS (IVPB) 50 ML IV ONE (07:30)
--- NOTE | 2018-05-04 08:08 | Progress Note-Pre Operative ---
Pre-Operative Progress Note H&P Reviewed The H&P was reviewed, patient examined and no changes noted. Date Seen by Provider: May 04, 2018 Time Seen by Provider: 07:50 Date H&P Reviewed: May 04, 2018 Time H&P Reviewed: 07:55 Pre-Operative Diagnosis: morbid obesity, type 2 diabetes mellitus TYLER SORENSON APRN May 04, 2018 8:07 am
[2018-05-04] MEDS ORDERED: ceFAZolin 2 GM IV Premixed 50 ML ONE (08:18)
[2018-05-04] MEDS ORDERED: ceFAZolin 2 GM IV Premixed 50 ML IV ONE (09:00)
[2018-05-04] MEDS ORDERED: DESFLURANE (SUPRANE) 15 ML INHAL SOLN ONE ×2 (09:47→09:56)
[2018-05-04] MEDS ORDERED: GLYCOPYRROLATE 0.2 MG/ML (ROBINUL) 2 ML VIAL ONE (10:02)
[2018-05-04] MEDS ORDERED: NEOSTIGMINE 1 MG/ML 5 ML SYRINGE ONE (10:02)
[2018-05-04] MEDS ORDERED: PHENYLEPHRINE 100 MCG/ML 10 ML (ANESTHESIA) SYR ONE (10:02)
[2018-05-04] MEDS ORDERED: NS IV 1000 ML 1,000 ML IV SCH (10:13)
--- NOTE | 2018-05-04 10:13 | Progress Note-Post Operative ---
Post-Operative Progess Note Surgeon (s)/Casting Supervisor (s) Surgeon KRISTEN PICKARD MD Casting Supervisor: huan benson [employer] Pre-Operative Diagnosis morbid obesity, type 2 diabetes mellitus Post-Operative Diagnosis same Procedure & Operative Findings Date of Procedure 05/04/18 Procedure Performed/Findings laparoscopic gastric sleeve resection. Anesthesia Type GET Estimated Blood Loss Estimated blood loss (mL): minimal Specimens/Packing Specimens Removed stomach KRISTEN PICKARD MD May 04, 2018 10:13 am
[2018-05-04] MEDS ORDERED: fentaNYL INJECTION 1,000 MCG in NS (IVPB) 80 ML IV SCH (10:15)
[2018-05-04] MEDS ORDERED: oxyCODONE 20 MG/1 ML ORAL CONC (RoxiCODONE) CHARGE PER 1 ML PO PRN (10:15)
[2018-05-04] MEDS ORDERED: NALOXONE 0.4 MG/ML 1 ML (NARCAN) VIAL IV PRN (10:15)
[2018-05-04] MEDS ORDERED: diphenhydrAMINE 50 MG/ML INJ (BENADRYL) IVP PRN (10:15)
[2018-05-04] MEDS ORDERED: metroNIDAZOLE 500MG/100ML IVPB 100 ML IV SCH (10:15)
[2018-05-04] MEDS ORDERED: METOCLOPRAMIDE INJ 10 MG/2 ML (REGLAN) IV PRN (10:15)
[2018-05-04] MEDS ORDERED: ONDANSETRON 4 MG/2 ML (SDV) Z0FRAN IV PRN (10:15)
[2018-05-04] MEDS ORDERED: morphine INJ 10 MG/ML 1ML (SYR OR VIAL) ONE ×2 (10:18→10:20)
[2018-05-04] MEDS ORDERED: PANT40TA2 PO (10:23)
[2018-05-04] MEDS ORDERED: ONDN4T PO (10:23)
[2018-05-04] MEDS ORDERED: HYDR-34 PO (10:23)
--- NOTE | 2018-05-04 10:25 | Discharge Inst-Surgical ---
D/C Lap Instructions-NEERAJ New, Converted, or Re-Newed RX: RX on Chart Follow Up Appt in 2 weeks Activity as tolerated No driving for 24 hours No driving while on pain medications Incentive Spirometry use every 2 hours while awake phase 1 clear liquid diet 2 weeks Symptoms to Report: Fever over 101 degree F, Nausea/Vomiting Infection Signs and Symptoms to report: Increased redness, Foul odor of wound, Increased drainage Bathing instructions: May shower Operative Area Clean/Dry; Keep incision clean/dry If any problems/questions: Contact your physician or go to Emergency Room KRISTEN PICKARD MD May 04, 2018 10:25 am
[2018-05-04] MEDS ORDERED: diphenhydrAMINE 50 MG/ML INJ (BENADRYL) ONE (10:27)
[2018-05-04] MEDS ORDERED: PROMETHAZINE INJ 25 MG/ML (PHENERGAN) AMP IVP PRN (10:30)
[2018-05-04] MEDS ORDERED: diphenhydrAMINE 50 MG/ML INJ (BENADRYL) IM ONE (10:30)
[2018-05-04] MEDS ORDERED: MEPERIDINE (DEMEROL) INJ 50 MG/ML IVP PRN (10:30)
[2018-05-04] MEDS ORDERED: ONDANSETRON 4 MG/2 ML (SDV) Z0FRAN IVP PRN (10:30)
[2018-05-04] MEDS ORDERED: RT-ALBUTEROL SULF 2.5 MG/3 ML PRE-MIX VIAL ONE (10:53)
[2018-05-04] MEDS: HYDROmorphone 1 MG/ML (DILAUDID) 1 ML SYRINGE IV PRN ×2 (11:03→11:13)
[2018-05-04] MEDS ORDERED: ONDANSETRON 4 MG/2 ML (SDV) Z0FRAN IVP SCH (12:00)
[2018-05-04] MEDS ORDERED: METOCLOPRAMIDE INJ 10 MG/2 ML (REGLAN) IVP SCH (12:00)
[2018-05-04 12:01] VITALS: BP 125/66
[2018-05-04] MEDS: 1/2 NS W/KCL 20 MEQ/L 1,000 ML IV SCH ×3 (12:55→23:03)
[2018-05-04] MEDS ORDERED: ceFAZolin 2 GM IV Premixed 50 ML IV SCH (14:00)
--- NOTE | 2018-05-04 14:04 | Anesthesia-General Post-Op ---
General Patient Condition Mental Status/LOC: Same as Preop Cardiovascular: Satisfactory Nausea/Vomiting: Absent Respiratory: Satisfactory Pain: Controlled Complications: Absent Post Op Complications Complications None Follow Up Care/Instructions Patient Instructions None needed. Anesthesia/Patient Condition Patient Condition Patient is doing well, no complaints, stable vital signs, no apparent adverse anesthesia problems. No complications reported per nursing. D/C home per [facility] [place] Criteria: No PRIYANK GOMEZ CRNA May 04, 2018 14:04
[2018-05-04] MEDS: RT-ALBUTEROL SULF 2.5 MG/3 ML PRE-MIX VIAL INH SCH ×3 (14:37→22:14)
[2018-05-04 16:30] VITALS: BP 126/70
[2018-05-04] MEDS: ONDANSETRON 4 MG/2 ML (SDV) Z0FRAN IVP PRN ×2 (16:43→22:49)
[2018-05-04] MEDS ORDERED: METOCLOPRAMIDE INJ 10 MG/2 ML (REGLAN) ONE (19:44)
[2018-05-04] MEDS: METOCLOPRAMIDE INJ 10 MG/2 ML (REGLAN) IVP PRN (19:51)
--- NOTE | 2018-05-04 20:08 | OPERATIVE REPORT ---
DATE OF SERVICE: 05/04/2018 ATTENDING PRIMARY CARE PHYSICIAN: Dr. Loida Christianson. PREOPERATIVE DIAGNOSES: Morbid obesity, noninsulin dependent diabetes, anxiety, depression. POSTOPERATIVE DIAGNOSES: Morbid obesity, noninsulin dependent diabetes, anxiety, depression. PROCEDURE: Laparoscopic gastric sleeve resection. SURGEON: Kristen Pickard MD DEDICATED REGIONAL DRIVER: Len Green APRN. ANESTHESIA: General endotracheal. ESTIMATED BLOOD LOSS: Minimal. FINDINGS: Mild hepatomegaly, normal appearing gallbladder. No hiatal hernia. DISPOSITION: The patient tolerated the procedure well. INDICATIONS: The patient is a 37-year-old female with morbid obesity who was in our surgical weight loss program for the laparoscopic gastric sleeve resection and meets the medical criteria for bariatric surgery. She began to gain the majority of her adult weight around 18 years of age. She has tried diets including Atkins, ketogenic diet as well as just fruits and vegetables and high protein without any success. She has tried exercise regimens including treadmill, elliptical, weight training as well and again did not have any success. She has tried phentermine in the past again with no success. Her medical comorbidities related to her obesity include noninsulin dependent diabetes, anxiety, and depression. DESCRIPTION OF PROCEDURE: The patient was brought to the operating room, laid supine on the table. After adequate IV pain and sedating medications and general endotracheal intubation, the abdomen was prepped and draped in standard surgical fashion. A 0.5% Marcaine with epinephrine was used to anesthetize the overlying skin in the left upper abdominal quadrant and a transverse skin incision was made using 15 blade. An 0 silk suture was applied to the medial aspect of the incision for retraction and a Veress needle was inserted with a low opening pressure of 0 mmHg and the abdomen was then insufflated at 15 mmHg pressure. The Veress needle was removed and a 5 mm Xcel trocar was placed followed by a 5 mm 45-degree angle laparoscope visualizing the peritoneal cavity. A 4-quadrant abdominal exploration was performed. There was mild hepatomegaly and an intact gallbladder with no stones. There was no hiatal hernia identified. Under direct visualization, we then proceeded to place a midabdominal left of midline 10 mm port after the skin and peritoneal lining were anesthetized using 0.5% Marcaine with epinephrine and a transverse skin incision was made using a 15 blade. In a similar manner, a midabdominal right of midline 15 mm port was placed. This was followed by a right upper abdominal quadrant port. The epigastric region was then anesthetized and a small transverse skin incision was made using 11 blade. A tract was then created through the abdominal layers using a trocar to a 5 mm port and through this opening, a medium sized Nathansen liver retractor was placed and the left lobe of the liver was retracted anteriorly and superiorly. The patient was then placed in a steep reverse Trendelenburg position. We then measured approximately 6 cm from the pylorus proximally along the greater curvature and marked this with a marking pen. The gastrocolic ligament next to the stomach was then opened entering the lesser sac using the Sonicision. We then proceeded with caudal dissection until we were approximately 2 cm below our marking using the Sonicision with visualization of good hemostasis. We then proceeded in the cephalad direction taking all the short gastric vessels as well. The angle of His connective tissue fibers were then taken down using the Sonicision as well as blunt dissection as well as the posterior stomach behind this region. A 42-Swedish bougie was then placed under direct visualization and guided into the pylorus. We then proceeded with our gastric sleeve resection first starting with a 45 mm polyglycolic acid black load approximately 2 cm below our marking. We then proceeded with two 60 mm black loads followed by two 60 mm purple loads completing our gastric sleeve resection. The staple line corners were then clipped with 5 mm clips. The Tisseel fibrin glue was placed on to the staple line and the omentum placed back over the staple line. The liver retractor as well as the bougie were then removed. The fascia and peritoneum to the 10 and 15 mm port sites were closed under direct visualization using a Jeyson-Armaan device and 0 Vicryl suture. Before this, the stomach was removed through the 15 mm port site. The abdomen was desufflated and remaining ports were removed. All skin incisions were closed using 4-0 Monocryl running subcuticular sutures. Wounds were then cleaned and covered with Dermabond. The patient tolerated the procedure well. We will admit her to the general surgical floor. We will proceed with DVT prophylaxis with early ambulation, calf SCDs as well as Lovenox injections. Tomorrow morning, we will start a phase I clear liquid diet. Once she is tolerating clears and has good pain control with oral pain medications and ambulating well, we will discharge her home. She will be instructed to follow a phase I clear liquid diet for the next 2 weeks. Job ID: [id number] DocumentID: [id number] Dictated Date: 05/04/2018 10:37:20 Nursing Secretary Date: 05/04/2018 20:07:24 Dictated By: KRISTEN PICKARD MD
[2018-05-04 20:31] VITALS: BP 120/63
[2018-05-04] MEDS: ENOXAPARIN 40 MG/0.4 ML (LOVENOX) SYR SC SCH (21:14)
[2018-05-04] MEDS: metroNIDAZOLE 500MG/100ML IVPB 100 ML IV SCH (21:14)
[2018-05-04] MEDS: diphenhydrAMINE 50 MG/ML INJ (BENADRYL) IV PRN (22:43)
[2018-05-04] MEDS: ceFAZolin 2 GM IV Premixed 50 ML IV SCH (22:53)
[2018-05-05] VITALS: BP 142/68
[2018-05-05] MEDS: RT-ALBUTEROL SULF 2.5 MG/3 ML PRE-MIX VIAL INH SCH ×3 (02:22→10:22)
[2018-05-05] MEDS ORDERED: METOCLOPRAMIDE INJ 10 MG/2 ML (REGLAN) ONE (02:34)
[2018-05-05] MEDS: METOCLOPRAMIDE INJ 10 MG/2 ML (REGLAN) IVP PRN (02:38)
[2018-05-05 04:00] VITALS: BP 121/61
[2018-05-05] MEDS: metroNIDAZOLE 500MG/100ML IVPB 100 ML IV SCH (04:44)
[2018-05-05] MEDS: diphenhydrAMINE 50 MG/ML INJ (BENADRYL) IV PRN (04:44)
[2018-05-05 06:27] LABS: RED BLOOD COUNT 4.05 10^6/uL (4.35-5.85); RED CELL DISTRIBUTION WIDTH 11.8 % (10.0-14.5); WHITE BLOOD COUNT 17.3 10^3/uL (4.3-11.0)
[2018-05-05] MEDS: ceFAZolin 2 GM IV Premixed 50 ML IV SCH (06:33)
[2018-05-05] MEDS: 1/2 NS W/KCL 20 MEQ/L 1,000 ML IV SCH (06:33)
[2018-05-05 06:44] LABS: BUN/CREATININE RATIO 10; CALCIUM 8.7 MG/DL (8.5-10.1); CARBON DIOXIDE 21 MMOL/L (21-32); CHLORIDE 109 MMOL/L (98-107); CREATININE SERUM 0.73 MG/DL (0.60-1.30); GFR ESTIMATED > 60; GLUCOSE 104 MG/DL (70-105); POTASSIUM 3.9 MMOL/L (3.6-5.0); SODIUM 138 MMOL/L (135-145)
[2018-05-05] MEDS: ONDANSETRON 4 MG/2 ML (SDV) Z0FRAN IVP PRN ×2 (07:27→13:21)
[2018-05-05 08:00] VITALS: BP 145/75
--- NOTE | 2018-05-05 08:00 | Consultation (CHS) ---
HPI History of Present Illness: Time Seen by Provider: 13:50 Attending Physician Jason Kaminski MD PCP Alyssa Christianson MD Consult Date of Admission May 04, 2018 at 10:20 Home Medications Home Medications Reviewed patient Home Medication Reconciliation performed by pharmacy medication reconciliations quality technician fiberglass and/or nursing. Patients Allergies have been reviewed. Allergies Coded Allergies: No Known Drug Allergies (Unverified , 12/21/17) HRJ-[id number]-Ztzlww Hx Patient Social History Marrital Status: domestic partnership (engaged) Number of Children: 1 Number of living children: 1 Living Status: lives with son and fiance in [place] Employed/Student: employed Alcohol Use: Occasionally Uses Recreational Drug Use: No Smoking Status: Light Tobacco Smoker Type Used: Cigarettes Recent Foreign Travel: No Contact w/other who traveled: No Recent Hopitalizations: No Recent Infectious Disease Expo: No Physical Abuse Screen: No Sexual Abuse: No Immunizations Up To Date Tetanus Booster (TDap): More than 5yrs Date of Influenza Vaccine: Jul 31, 2013 Past Medical History Scoliosis Anxiety ADHD Obesity, BMI 42 Tobacco Abuse Depression Chronic Pain Past Surgical Hx: Ectopic 2007 D&C 2008 Right Meniscus Repair 2012 T&A, Myringotomy Tubes 1989 Cardiac Cath, no intervention - 2007 Dental Surgery - 1985 Partial Hysterectomy, Bladder Repair, Umbilical Hernia Repair - 2017 Family Medical History Significant Family History: Heart Disease, CAD Under 55 Years Old Family History: Cardiovascular disease 19 FATHER Hypertension 19 FATHER Thyroid disease G8 SISTER Review of Systems ([facility]C) Constitutional: see HPI Physical Exam-([facility]C) Physical Exam Vital Signs VS - Last 72 Hours, by Label 05/04/18 05/04/18 05/04/18 05/04/18 07:15 12:00 12:01 12:20 Temp 97.0 96.4 Pulse 66 55 Resp 16 20 16 B/P (MAP) 111/67 (82) 125/66 (85) Pulse Ox 97 99 O2 Delivery Room Air Nasal Cannula Nasal Cannula O2 Flow Rate 3.00 3.00 05/04/18 05/04/18 05/04/18 05/04/18 13:25 14:00 16:30 18:06 Temp 96.4 97.4 Pulse 62 Resp 20 B/P (MAP) 126/70 (88) Pulse Ox 99 98 99 O2 Delivery Nasal Cannula Nasal Cannula Nasal Cannula O2 Flow Rate 2.00 3.00 3.00 7/5/18 7/5/18 7/5/18 7/6/18 18:23 20:31 22:15 00:00 Temp 98.2 99.6 Pulse 74 64 Resp 20 20 20 B/P (MAP) 120/63 (82) 142/68 (92) Pulse Ox 98 96 99 O2 Delivery Nasal Cannula Room Air Nasal Cannula O2 Flow Rate 2.00 2.00 05/05/18 05/05/18 05/05/18 05/05/18 02:24 04:00 04:52 07:11 Temp 99.4 Pulse 77 Resp 20 20 B/P (MAP) 121/61 (81) Pulse Ox 96 98 99 O2 Delivery Nasal Cannula Nasal Cannula Nasal Cannula O2 Flow Rate 2.00 2.00 2.00 05/05/18 05/05/18 05/05/18 08:00 10:23 12:00 Temp 98.8 98.9 Pulse 68 96 Resp 16 16 B/P (MAP) 145/75 (98) 146/79 (101) Pulse Ox 96 98 96 O2 Delivery Nasal Cannula Room Air Nasal Cannula O2 Flow Rate 2.00 2.00 Capillary Refill : Less Than 3 Seconds General Appearance: no apparent distress Clinical Quality Measures DVT/VTE Risk/Contraindication: Risk Factor Score Per Nursin RFS Level Per Nursing on Admit: 4+=Very High Copy Copies To 1: ALYSSA CHRISTIANSON MD, MARGARET E DO May 05, 2018 08:00
[2018-05-05] MEDS ORDERED: PANTOPRAZOLE 40 MG (PROTONIX) TAB PO SCH (09:00)
[2018-05-05] MEDS ORDERED: SENNA W/DOCUSATE (SENOKOT S) TABLET PO SCH (09:00)
[2018-05-05] MEDS ORDERED: PANTOPRAZOLE 40 MG/10 ML (PROTONIX) VIAL IV SCH (09:00)
[2018-05-05] MEDS: ENOXAPARIN 40 MG/0.4 ML (LOVENOX) SYR SC SCH (09:58)
--- NOTE | 2018-05-05 11:26 | Progress Note (SOAP) ---
Subjective Date Seen by Provider: May 05, 2018 Time Seen by Provider: 10:00 Subjective/Events-last exam doing well. tolerating phase 1 clear liquids, pain controlled. no nausea/ vomiting. ambulating well. Objective Exam Vital Signs Date Time Temp Pulse Resp B/P (MAP) Pulse Ox O2 Delivery O2 Flow Rate FiO2 05/05/18 10:23 98 Room Air 05/05/18 08:00 98.8 68 16 145/75 (98) 96 Nasal Cannula 2.00 05/05/18 07:11 99 Nasal Cannula 2.00 05/05/18 04:52 20 05/05/18 04:00 99.4 77 20 121/61 (81) 98 Nasal Cannula 2.00 05/05/18 02:24 96 Nasal Cannula 2.00 05/05/18 00:00 99.6 64 20 142/68 (92) 99 Nasal Cannula 2.00 05/04/18 22:15 96 Room Air 05/04/18 20:31 98.2 74 20 120/63 (82) 98 Nasal Cannula 2.00 05/04/18 18:23 20 05/04/18 18:06 99 Nasal Cannula 3.00 05/04/18 16:30 97.4 62 20 126/70 (88) 98 Nasal Cannula 3.00 05/04/18 14:00 99 Nasal Cannula 2.00 05/04/18 13:25 96.4 05/04/18 12:20 Nasal Cannula 3.00 05/04/18 12:01 96.4 55 16 125/66 (85) 99 Nasal Cannula 3.00 05/04/18 12:00 20 I & O 05/05/18 07:00 Intake Total 4600 ml Output Total 3600 ml Balance 1000 ml Capillary Refill : Less Than 3 Seconds General Appearance: No Apparent Distress HEENT: PERRL/EOMI Neck: Full Range of Motion Respiratory: Chest Non Tender, Lungs Clear, Normal Breath Sounds Cardiovascular: Regular Rate, Rhythm Gastrointestinal: normal bowel sounds, soft, tenderness, other (inc clean/dry) Extremity: Normal Capillary Refill Neurologic/Psychiatric: Alert, Oriented x3 Skin: Normal Color Lymphatic: No Adenopathy Results Lab Laboratory Tests 05/05/18 05:55: White Blood Count 17.3H, Red Blood Count 4.05L, Hemoglobin 13.0, Hematocrit 36, Mean Corpuscular Volume 89, Mean Corpuscular Hemoglobin 32, Mean Corpuscular Hemoglobin Concent 36, Red Cell Distribution Width 11.8, Platelet Count 246, Mean Platelet Volume 9.0, Sodium Level 138, Potassium Level 3.9, Chloride Level 109H, Carbon Dioxide Level 21, Anion Gap 8, Blood Urea Nitrogen 7, Creatinine 0.73, Estimat Glomerular Filtration Rate > 60, BUN/Creatinine Ratio 10, Glucose Level 104, Calcium Level 8.7 Assessment/Plan Assessment/Plan Assess & Plan/Chief Complaint s/p lap gastric sleeve resection. continue ambulation. continue phase 1 clear liquids for 2 weeks. home soon. Clinical Quality Measures DVT/VTE Risk/Contraindication: Risk Factor Score Per Nursin RFS Level Per Nursing on Admit: 4+=Very High KRISTEN PIKCARD MD May 05, 2018 11:26 am
[2018-05-05 12:00] VITALS: BP 146/79
[2018-05-05 17:10] VITALS: BP 146/79
== END 2018-05-05 13:30 | disposition home or self-care (01) | DRG 621 ==
LOC: SDC 06:50 → 4TH 10:20
PROVIDERS: ADMIT Surgery; ATTEND Surgery
PROC: 0DB64Z3 Excision of Stomach, Percutaneous Endoscopic Approach, Vertical (ICD-10-PCS; principal; 2018-05-04 08:27)
DX: E66.01 Morbid (severe) obesity due to excess calories (principal); Z68.41 Body mass index [BMI] 40.0-44.9, adult; E11.9 Type 2 diabetes mellitus without complications; F41.9 Anxiety disorder, unspecified; F32.9 Major depressive disorder, single episode, unspecified
CPT/HCPCS: 36415; 80048; 85027; 94640; 94664; 94760

== ENCOUNTER 2018-12-04 00:28 | Emergency (ER) | payer BC ==
[~2018-12-04] VITALS: Ht 154.9 cm; Wt 74.8 kg
[~2018-12-04 00:28] MED LIST changes: +ONDN4T PO; +PANT40TA2 PO
--- NOTE | 2018-12-04 02:06 | ED Head Injury ---
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 TIME OF INCIDENT 2300. PT STATES THE WOUND BLED FOR AROUND FIFTEEN MINUTES, STILL OOZING OCCASIONALLY. DENIES LOC, DENIES HEADACHE, NAUSEA, OR VOMITING. 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 She did not lose consciousness is not having any nausea or headache. Has not taken anything for it. Does not the last time she had a tetanus shot. Allergies and Home Medications Allergies Coded Allergies: No Known Drug Allergies (Unverified , 12/21/17) Home Medications Bupropion HCl 100 Mg Tablet.er, 150 MG PO BID, (Reported) take 1 1/2 of 100mg tab Hydrocodone Bit/Acetaminophen 1 Ea Tablet, 1 EACH PO Q4H Prescribed by: KRISTEN PICKARD on 05/04/18 1023 Ondansetron HCl 4 Mg Tab, 4 MG PO Q4H Prescribed by: KRISTEN PICKARD on 05/04/18 1023 Pantoprazole Sodium 40 Mg Tablet.dr, 40 MG PO DAILY Prescribed by: KRISTEN PICKARD on 05/04/18 1023 Patient Home Medication List Home Medication List Reviewed: Yes Review of Systems Review of Systems Constitutional: No chills, No diaphoresis Eyes: Denies Blindness, Denies Blurred Vision Ears, Nose, Mouth, Throat: denies ear pain, denies ear discharge Respiratory: No cough, No short of breath Cardiovascular: No chest pain, No edema Gastrointestinal: No abdominal pain, No constipation, No diarrhea Past Yanngqh-Xzbftv-Jbsqmc Hx Patient Social History Alcohol Use: Denies Use Recreational Drug Use: No Smoking Status: Current Someday Smoker Type Used: Cigarettes Former Smoker, Quit: Jul 01, 2017 Recent Foreign Travel: No Contact w/Someone Who Travel: No Recent Infectious Disease Expo: No Recent Hopitalizations: No Physical Abuse: No Sexual Abuse: No Mistreated: No Fear: No Immunizations Up To Date Tetanus Booster (TDap): Unknown PED Vaccines UTD: Yes Date of Influenza Vaccine: Jul 31, 2013 Seasonal Allergies Seasonal Allergies: No Past Medical History Surgeries: Yes (ECTOPIC , HEART CATH, RT KNEE scope x2) Adenoidectomy, Appendectomy, Cardiac, Ear Surgery, Orthopedic, Tonsillectomy Respiratory: No Cardiac: Yes (HEART CATH-NEGATIVE) Heart Murmur Neurological: No : No Reproductive Disorders: No Female Reproductive Disorders: Menstrual Problems, 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 Sexually Transmitted Disease: No HIV/AIDS: No Genitourinary: Yes (CYSTOCELE) Gastrointestinal: Yes (UMBILICAL HERNIA) Gastroesophageal Reflux Musculoskeletal: Yes Scoliosis, Chronic Back Pain Endocrine: No HEENT: Yes (GLASSES/CONTACTS) Loss of Vision: Bilateral Hearing Impairment: Deaf Cancer: No Psychosocial: Yes ADD/ADHD Integumentary: No Blood Disorders: No Adverse Reaction/Blood Tranf: No (N/A) Family Medical History Cardiovascular disease 19 FATHER Hypertension 19 FATHER Thyroid disease G8 SISTER Heart Disease, CAD Under 55 Years Old Physical Exam Vital Signs Vital Signs - First Documented 12/04/18 01:20 Temp 98.3 Pulse 98 Resp 20 B/P (MAP) 104/74 (84) Pulse Ox 98 O2 Delivery Room Air Capillary Refill : Less Than 3 Seconds Height, Weight, BMI Height: 5'1.00" Weight: 165lbs. 0.0oz. [id number]; 41.3 BMI Method:Stated General Appearance: WD/WN, no apparent distress HEENT: PERRL/EOMI, normal ENT inspection, TMs normal, pharynx normal, other (2- 1/2 cm linear laceration well approximated small amount of bleeding on the right side of the occiput) Neck: non-tender, full range of motion, supple, normal inspection Cardiovascular: normal peripheral pulses, regular rate, rhythm, no edema Respiratory: no respiratory distress, no accessory muscle use Gastrointestinal: non tender, soft Psychiatric: alert, oriented x 3, other (GCS 15) Coordination/Gait: normal gait Motor/Sensory: no motor deficit, no sensory deficit Procedures/Interventions Wound Location: Scalp Other Wound Location Right occiput Wound Length (cm): 2.5 Wound's Depth, Shape: linear, sub Q Wound Explored: clean Irrigated w/ Saline (ccs): 100 Betadine Prep?: Yes Anesthesia: 1% Lidocaine Volume Anesthetic (ccs): 5 Wound Debrided: minimal Staple Repair: Stapler 35W Number of Sutures: 5 Sterile Dressing Applied?: Yes Progress Patient's wound was cleaned thoroughly with chlorhexidine soap water and then flushed with 100 cc of sterile saline. The wound was then doused in Betadine. The skin edges were infiltrated with a total of 5 cc of 1% lidocaine without epinephrine. When the wound edges were numb the wound was flushed one more time and reapproximated and closed with 5 summer. The wound was hemostatic and the patient tolerated the procedure well. Progress/Results/Core Measures Results/Orders My Orders Orders - LIV BAKRE Pertuss(Acell),Tet Adult (Boostrix (12/04/18 02:15) Lidocaine 1% Inj 20 Ml (Xylocaine 1% Inj (12/04/18 02:15) Vital Signs/I&O 12/04/18 01:20 Temp 98.3 Pulse 98 Resp 20 B/P (MAP) 104/74 (84) Pulse Ox 98 O2 Delivery Room Air Blood Pressure Mean: 84 Progress Progress Note : Time: 02:05 Progress Note Patient's not on blood thinners. Did not have loss of consciousness or any signs of concussion. This laceration on the back of her head. We have offered a CT of the head and she has declined. We have offered pain medicine and she has declined. We will use lidocaine and summer. Departure Impression Primary Impression: Laceration Additional Impression: Brain concussion Qualified Codes: S06.0X0A - Concussion without loss of consciousness, initial encounter Disposition: 01 HOME, SELF-CARE Condition: Improved Departure-Patient Inst. Decision time for Depature: 02:22 Referrals: ALYSSA COTTRELL MD (PCP/Family) Primary Care Physician Patient Instructions: Laceration Repair With Summer (DC), Concussion, Adult ( DC) Add. Discharge Instructions: Keep the wound clean with regular soap and water or shampoo. No submersion or swimming until after the summer are out in 10-14 days. You may follow-up at the ER or follow-up with primary care to have the summer out. If the wound begins to have discharge, increasing pain or you have fevers or other worrisome symptoms then you should follow-up with your doctor to have it reexamined for possibly an infection. If you have any symptoms of concussion take Tylenol or Motrin and get some sleep. All discharge instructions reviewed with patient and/ or family. Voiced understanding. LIV BAKER Dec 04, 2018 02:06
[2018-12-04] MEDS ORDERED: LIDOCAINE 1% INJ 20 ML 20 ML VIAL INJ ONE (02:15)
[2018-12-04] MEDS ORDERED: TETANUS,DIPTH,PERTUSS P/F (BOOSTRIX) 0.5 ML VIAL IM ONE (02:15)
--- NOTE | 2018-12-04 02:40 | NUR ---
FIVE SHERI IN PLACE IN PT'S SCALP. EDGES APPROXIMATED, BLEEDING CONTROLLED. PT TOLERATED PROCEDURE WELL.
[2018-12-04 02:41] VITALS: BP 112/79
== END 2018-12-04 02:40 | disposition home or self-care (01) ==
LOC: EDUNIT# 00:28 → ER 00:30
DX: S01.01XA Laceration without foreign body of scalp, initial encounter (principal); K21.9 Gastro-esophageal reflux disease without esophagitis; F98.8 Other specified behavioral and emotional disorders with onset usually occurring in childhood and adolescence; F90.9 Attention-deficit hyperactivity disorder, unspecified type; M41.9 Scoliosis, unspecified; Z87.19 Personal history of other diseases of the digestive system; Z82.49 Family history of ischemic heart disease and other diseases of the circulatory system; Z23 Encounter for immunization; Z87.891 Personal history of nicotine dependence; Z90.49 Acquired absence of other specified parts of digestive tract; Z90.89 Acquired absence of other organs; Z90.710 Acquired absence of both cervix and uterus; Z87.448 Personal history of other diseases of urinary system; W22.09XA Striking against other stationary object, initial encounter
CPT/HCPCS: 90715; 99284

== ENCOUNTER 2018-12-14 17:12 | Emergency (ER) | payer BC ==
[~2018-12-14] VITALS: Ht 157.5 cm; Wt 73.9 kg
[2018-12-14 17:28] VITALS: BP 112/70
== END 2018-12-14 17:28 | disposition home or self-care (01) ==
LOC: EDUNIT# 17:12 → ER 17:14
DX: S01.01XD Laceration without foreign body of scalp, subsequent encounter (principal); X58.XXXD Exposure to other specified factors, subsequent encounter

== ENCOUNTER 2019-04-11 18:25 | Observation (INO) | payer BC ==
[~2019-04-11] VITALS: Ht 157.5 cm; Wt 72.6 kg
[2019-04-11] MEDS ORDERED: LACTATED RINGERS 1,000 ML IV ONE (18:50)
--- NOTE | 2019-04-11 18:55 | ED General ---
General Chief Complaint: Fever-Adult/Adol Stated Complaint: FEVER,BODYACHES Nursing Triage Note: PATIENT AMBULATORY TO ER WITH COMPLAINT OF FEVER TODAY OF 104, GENERALIZED BODY ACHES, LOWER ABDOMINAL PAIN, UNBLE TO HAVE BM X 1 WEEK, AND DECREASED URINE OUTPUT. PATIENT ALSO COMPLAINS OF SOME SHORTNESS OF BREATH TODAY. PATIENT IS AWAKE AND ALERT X 4. PATIENT STATES SHE DID HAVE A ROOT CANAL DONE TODAY AT THE DENTIST AT 14:00. PATIENT TOOK IBUPROFEN 800 MG AT 16:30 TODAY AND HAS TAKEN MOM AND MIRALAX WITH NO RELIEF FROM THE CONSTIPATION. Nursing Sepsis Screen: Possible Sepsis Risk Source of Information: Patient Exam Limitations: No Limitations History of Present Illness Date Seen by Provider: Apr 11, 2019 Time Seen by Provider: 18:31 Initial Comments This 38-year-old woman presents to the emergency room with complaints of fever up to 104 at home that started yesterday. She is febrile on presentation despite taking ibuprofen 800 mg at 16:30. She also complains of generalized achiness with headache, achy neck, generalized abdominal discomfort, hip pain. She has problems with constipation sometimes and takes milk of magnesia and MiraLAX. She has not had a bowel movement in several days despite taking these medications. She has history of gastric sleeve and has no appetite presently. She had just a dribbling urination at 11:20 and has not urinated since then. She had a root canal performed in [place] today. She is alert and oriented. She denies nausea or vomiting. She has felt a little short of breath today. Allergies and Home Medications Allergies Coded Allergies: No Known Drug Allergies (Unverified , 04/11/19) Home Medications Multivitamin 1 Each Tablet, 1 EACH PO DAILY, (Reported) Patient Home Medication List Home Medication List Reviewed: Yes Review of Systems Review of Systems Constitutional: see HPI EENTM: no symptoms reported Respiratory: no symptoms reported Cardiovascular: no symptoms reported Gastrointestinal: see HPI Genitourinary: see HPI : No Musculoskeletal: see HPI Skin: no symptoms reported Psychiatric/Neurological: See HPI Hematologic/Lymphatic: No Symptoms Reported Past Ieqoedp-Mvgvxk-Dciaqu Hx Past Med/Social Hx: Reviewed and Corrections made Patient Social History Type Used: Cigarettes Former Smoker, Quit: Jul 01, 2017 Recent Foreign Travel: No Contact w/Someone Who Travel: No Recent Infectious Disease Expo: No Recent Hopitalizations: No Immunizations Up To Date Tetanus Booster (TDap): Unknown PED Vaccines UTD: Yes Date of Influenza Vaccine: Jul 31, 2013 Seasonal Allergies Seasonal Allergies: No Past Medical History Surgeries: Yes (ECTOPIC , HEART CATH, RT KNEE scope x2, gastric sleeve) Abdominal (gastric sleeve), Adenoidectomy, Appendectomy, Cardiac, Ear Surgery, Hysterectomy (sparing the ovaries), Orthopedic, Tonsillectomy Respiratory: No Cardiac: Yes (HEART CATH-NEGATIVE) Heart Murmur Neurological: No Reproductive Disorders: No Female Reproductive Disorders: Menstrual Problems, 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 Sexually Transmitted Disease: No HIV/AIDS: No Genitourinary: Yes (CYSTOCELE) Gastrointestinal: Yes (UMBILICAL HERNIA) Gastroesophageal Reflux Musculoskeletal: Yes Scoliosis, Chronic Back Pain Endocrine: No HEENT: Yes (GLASSES/CONTACTS) Loss of Vision: Bilateral Hearing Impairment: Deaf Cancer: No Psychosocial: Yes ADD/ADHD Integumentary: No Blood Disorders: No Adverse Reaction/Blood Tranf: No (N/A) Family Medical History Reviewed Nursing Family Hx Cardiovascular disease 19 FATHER Hypertension 19 FATHER Thyroid disease G8 SISTER Heart Disease, CAD Under 55 Years Old Physical Exam Vital Signs Vital Signs - First Documented 04/11/19 18:28 Temp 101.3 Pulse 108 Resp 20 B/P (MAP) 119/70 (86) Pulse Ox 97 O2 Delivery Room Air Capillary Refill : Less Than 3 Seconds Height, Weight, BMI Height: 5'2.00" Weight: 160lbs. 0.0oz. 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 Norm as Tested Skin: Normal Color, Warm/Dry Focused Exam Lactate Level 04/11/19 18:41: Lactic Acid Level 0.95 Lactic Acid Level Progress/Results/Core Measures Suspected Sepsis Recent Fever Within 48 Hours: Yes Infection Criteria Present: Suspected New Infection New/Unexplained Altered Menta: No Sepsis Screen: Possible Sepsis Risk SIRS Temperature:101.3 Pulse: 108 Respiratory Rate: 20 Laboratory Tests 04/11/19 18:41: White Blood Count 6.6 Blood Pressure 119 /70 Mean: 86 04/11/19 18:41: Lactic Acid Level 0.95 Laboratory Tests 04/11/19 18:41: Creatinine 0.73, Platelet Count 175, Total Bilirubin 0.4 Results/Orders Lab Results Laboratory Tests Test 04/11/19 18:41 04/11/19 19:08 Range/Units White Blood Count 6.6 4.3-11.0 10^3/uL Red Blood Count 4.03 L 4.35-5.85 10^6/uL Hemoglobin 13.1 11.5-16.0 G/DL Hematocrit 37 35-52 % Mean Corpuscular Volume 92 80-99 FL Mean Corpuscular Hemoglobin 33 25-34 PG Mean Corpuscular Hemoglobin Concent 36 32-36 G/DL Red Cell Distribution Width 11.7 10.0-14.5 % Platelet Count 175 130-400 10^3/uL Mean Platelet Volume 9.4 7.4-10.4 FL Neutrophils (%) (Auto) 78 H 42-75 % Lymphocytes (%) (Auto) 18 12-44 % Monocytes (%) (Auto) 4 0-12 % Eosinophils (%) (Auto) 0 0-10 % Basophils (%) (Auto) 0 0-10 % Neutrophils # (Auto) 5.2 1.8-7.8 X 10^3 Lymphocytes # (Auto) 1.2 1.0-4.0 X 10^3 Monocytes # (Auto) 0.2 0.0-1.0 X 10^3 Eosinophils # (Auto) 0.0 0.0-0.3 10^3/uL Basophils # (Auto) 0.0 0.0-0.1 10^3/uL Sodium Level 140 135-145 MMOL/L Potassium Level 4.2 3.6-5.0 MMOL/L Chloride Level 107 98-107 MMOL/L Carbon Dioxide Level 22 21-32 MMOL/L Anion Gap 11 5-14 MMOL/L Blood Urea Nitrogen 10 7-18 MG/DL Creatinine 0.73 0.60-1.30 MG/DL Estimat Glomerular Filtration Rate > 60 BUN/Creatinine Ratio 14 Glucose Level 99 70-105 MG/DL Lactic Acid Level 0.95 0.50-2.00 MMOL/L Calcium Level 9.2 8.5-10.1 MG/DL Corrected Calcium 9.3 8.5-10.1 MG/DL Magnesium Level 1.6 L 1.8-2.4 MG/DL Total Bilirubin 0.4 0.1-1.0 MG/DL Aspartate Amino Transf (AST/SGOT) 18 5-34 U/L Alanine Aminotransferase (ALT/SGPT) 16 0-55 U/L Alkaline Phosphatase 66 40-136 U/L C-Reactive Protein High Sensitivity 5.92 H 0.00-0.50 MG/DL Total Protein 6.6 6.4-8.2 GM/DL Albumin 3.9 3.2-4.5 GM/DL Lipase 22 8-78 U/L Urine Color YELLOW Urine Clarity CLEAR Urine pH 6 5-9 Urine Specific [place] 1.025 H 1.016-1.022 Urine Protein 1+ H NEGATIVE Urine Glucose (UA) NEGATIVE NEGATIVE Urine Ketones NEGATIVE NEGATIVE Urine Nitrite NEGATIVE NEGATIVE Urine Bilirubin NEGATIVE NEGATIVE Urine Urobilinogen NORMAL NORMAL MG/DL Urine Leukocyte Esterase 1+ H NEGATIVE Urine RBC (Auto) 4+ H NEGATIVE Urine RBC NONE /HPF Urine WBC 2-5 /HPF Urine Squamous Epithelial Cells 2-5 /HPF Urine Crystals NONE /LPF Urine Bacteria MODERATE H /HPF Urine Casts NONE /LPF Urine Mucus SMALL H /LPF Urine Culture Indicated YES My Orders Orders - PAVAN SANTAMARIA MD Cbc With Automated Diff (04/11/19 18:50) Comprehensive Metabolic Panel (04/11/19 18:50) Hs C Reactive Protein (04/11/19 18:50) Lipase (04/11/19 18:50) Magnesium (04/11/19 18:50) Ua Culture If Indicated (04/11/19 18:50) Ed Iv/Invasive Line Start (04/11/19 18:50) Chest Pa/Lat (2 View) (04/11/19 18:50) Abdomen, Flat & Upright/Decub (04/11/19 18:50) Ed Iv/Invasive Line Start (04/11/19 18:50) Lactated Ringers (Lr 1000 Ml Iv Solution (04/11/19 18:50) Urine Culture (04/11/19 19:08) Blood Culture (04/11/19 20:02) Lactic Acid Analyzer (04/11/19 20:02) Ns Iv 1000 Ml (Sodium Chloride 0.9%) (04/11/19 20:05) Acetaminophen Tablet (Tylenol Tablet) (04/11/19 20:15) Ceftriaxone For Iv Use (Rocephin For I (04/11/19 20:15) Medications Given in ED Current Medications Medications Dose Ordered Sig/Rosalind Route Start Time Stop Time Status Last Admin Dose Admin Lactated Ringer's 1,000 ml @ 0 mls/hr Q0M ONCE IV 04/11/19 18:50 04/11/19 18:54 DC 04/11/19 18:58 1,000 MLS/HR Sodium Chloride 1,000 ml @ 0 mls/hr Q0M ONCE IV 04/11/19 20:05 04/11/19 20:06 DC 04/11/19 20:20 1,000 MLS/HR Vital Signs/I&O 04/11/19 04/11/19 04/11/19 04/11/19 18:28 20:20 21:07 21:14 Temp 101.3 101.3 100.1 99.4 Pulse 108 71 81 Resp 20 16 18 B/P (MAP) 119/70 (86) 103/61 (75) 89/51 Pulse Ox 97 100 100 O2 Delivery Room Air Room Air 04/11/19 04/12/19 04/12/19 21:52 00:44 00:45 Temp 98.4 98.4 Pulse 75 75 Resp 18 18 B/P (MAP) 96/64 (75) 96/64 (75) Pulse Ox 100 97 97 O2 Delivery Room Air Capillary Refill : Less Than 3 Seconds Blood Pressure Mean: 86 Progress Note : Time: 20:11 Progress Note Patient was seen and examined shortly after arrival. A liter of LR was infused. Patient was found to be febrile and tachycardic. Septic workup was pursued. X-rays of the chest and abdomen were unremarkable. There was some suggestion of urinary tract infection with moderate bacteria on the UA. Rocephin was ordered for initial treatment. Discussed options with the patient. She like to be admitted and watched in the hospital overnight for treatment of possible sepsis. She complains of persistent achiness and headache. Tylenol will be given to help with this. She took ibuprofen last early this evening. Case was discussed with Dr. Cottrell who is agreeable to admission. Blood cultures and lactic acid will be obtained before the Rocephin is given. Diagnostic Imaging Diagonstic Imaging: Xray Plain Films/CT/US/NM/MRI: abdomen, pelvis Comments KUB and upright x-ray viewed by me and report reviewed. See report below: NAME: BÁRBARA HYMAN [facility] REC#: [id number] PT STATUS: REG ER : 1980 PHYSICIAN: PAVAN SANTAMARIA MD ADMIT DATE: 04/11/19/ER Draft Date of Exam:04/11/19 ABDOMEN, FLAT UPRIGHT/DECUB INDICATION: Fever, shortness of air, constipation x4-5 days. TECHNIQUE: Supine and upright view of the abdomen at 07:06 p.m. CORRELATION STUDY: None. FINDINGS: Multiple surgical clips in the left upper quadrant. Bowel gas pattern appears unremarkable without findings to suggest obstruction or free air. No evidence for significant severity constipation or fecal impaction. Marked scoliotic curvature of the thoracolumbar spine. IMPRESSION: 1. Nonobstructed appearing bowel gas pattern. No findings to suggest significant severity constipation. Dictated on workstation # [id number] Dict: 04/11/191912 Trans: 04/11/191918 [id number] Interpreted by: EMMA GARCIA DO Diagonstic Imaging: Xray Plain Films/CT/US/NM/MRI: chest Comments Two-view chest x-ray viewed by me and report reviewed. See report below: NAME: BÁRBARA HYMAN [facility] REC#: [id number] PT STATUS: REG ER : 1980 PHYSICIAN: PAVAN SANTAMARIA MD ADMIT DATE: 04/11/19/ER Draft Date of Exam:04/11/19 CHEST PA/LAT (2 VIEW) INDICATION: Fever, shortness of air, constipation x 4-5 days. TECHNIQUE: Two view chest, 7:04 p.m. CORRELATION STUDY: 09/20/2017. FINDINGS: The heart size, mediastinal configuration and pulmonary vasculature are within normal limits. The lungs are clear with no consolidating infiltrate. There is no significant pleural effusion or pneumothorax. Distortion of the chest with significant scoliotic curvature of the thoracolumbar spine. IMPRESSION: No radiographic evidence for acute abnormality of the chest. Dictated on workstation # [id number] Dict: 04/11/191908 Trans: 04/11/191923 [facility] [id number] Interpreted by: EMMA GARCIA DO Departure Communication (Admissions) Time/Spoke to Admitting Phy: 20:06 Dr. Cottrell Impression Primary Impression: Sepsis Qualified Codes: A41.9 - Sepsis, unspecified organism Additional Impressions: Urinary tract infection Qualified Codes: N39.0 - Urinary tract infection, site not specified Generalized abdominal pain Disposition: ADMITTED INPATIENT Condition: Improved Admissions Decision to Admit Reason: Admit from ER (General) Decision to Admit/Date: Apr 11, 2019 Time/Decision to Admit Time: 20:00 Departure-Patient Inst. Referrals: ALYSSA COTTRELL MD (PCP/Family) Primary Care Physician PAVAN SANTAMARIA MD Apr 11, 2019 18:54
[2019-04-11 18:59] LABS: BASOPHILS % (AUTO) 0 % (0-10); EOSINOPHILS % (AUTO) 0 % (0-10); HEMATOCRIT 37 % (35-52); HEMOGLOBIN 13.1 G/DL (11.5-16.0); LYMPHOCYTES # (AUTO) 1.2 X 10^3 (1.0-4.0); LYMPHOCYTES % (AUTO) 18 % (12-44); MEAN CORPUSCULAR HEMOGLOBIN 33 PG (25-34); MEAN CORPUSCULAR HGB CONC 36 G/DL (32-36); MEAN CORPUSCULAR VOLUME 92 FL (80-99); MEAN PLATELET VOLUME 9.4 FL (7.4-10.4); MONOCYTES # (AUTO) 0.2 X 10^3 (0.0-1.0); MONOCYTES % (AUTO) 4 % (0-12); NEUTROPHILS # (AUTO) 5.2 X 10^3 (1.8-7.8); NEUTROPHILS % (AUTO) 78 % (42-75); PLATELET COUNT 175 10^3/uL (130-400); RED CELL DISTRIBUTION WIDTH 11.7 % (10.0-14.5); WHITE BLOOD COUNT 6.6 10^3/uL (4.3-11.0)
[2019-04-11 19:15] LABS: ALANINE AMINOTRANSFERASE 16 U/L (0-55); ALBUMIN 3.9 GM/DL (3.2-4.5); ALKALINE PHOSPHATASE 66 U/L (40-136); BILIRUBIN,TOTAL 0.4 MG/DL (0.1-1.0); BUN/CREATININE RATIO 14; CALCIUM 9.2 MG/DL (8.5-10.1); CARBON DIOXIDE 22 MMOL/L (21-32); CHLORIDE 107 MMOL/L (98-107); CREATININE SERUM 0.73 MG/DL (0.60-1.30); GFR ESTIMATED > 60; GLUCOSE 99 MG/DL (70-105); LIPASE 22 U/L (8-78); MAGNESIUM 1.6 MG/DL (1.8-2.4); POTASSIUM 4.2 MMOL/L (3.6-5.0); SODIUM 140 MMOL/L (135-145); TOTAL PROTEIN 6.6 GM/DL (6.4-8.2)
--- NOTE | 2019-04-11 19:20 | Diagnostic Imaging Report ---
INDICATION: Fever, shortness of air, constipation x4-5 days. TECHNIQUE: Supine and upright view of the abdomen at 07:06 p.m. CORRELATION STUDY: None. FINDINGS: Multiple surgical clips in the left upper quadrant. Bowel gas pattern appears unremarkable without findings to suggest obstruction or free air. No evidence for significant severity constipation or fecal impaction. Marked scoliotic curvature of the thoracolumbar spine. IMPRESSION: 1. Nonobstructed appearing bowel gas pattern. No findings to suggest significant severity constipation. Dictated by: Dictated on workstation # [id number]
--- NOTE | 2019-04-11 19:25 | Diagnostic Imaging Report ---
INDICATION: Fever, shortness of air, constipation x 4-5 days. TECHNIQUE: Two view chest, 7:04 p.m. CORRELATION STUDY: 09/20/2017. FINDINGS: The heart size, mediastinal configuration and pulmonary vasculature are within normal limits. The lungs are clear with no consolidating infiltrate. There is no significant pleural effusion or pneumothorax. Distortion of the chest with significant scoliotic curvature of the thoracolumbar spine. IMPRESSION: No radiographic evidence for acute abnormality of the chest. Dictated by: Dictated on workstation # [id number]
[2019-04-11 19:27] LABS: BILIRUBIN,URINE NEGATIVE (NEGATIVE); CLARITY,URINE CLEAR; COLOR,URINE YELLOW; GLUCOSE, URINE (UA) NEGATIVE (NEGATIVE); KETONES,URINE NEGATIVE (NEGATIVE); LEUKOCYTE ESTERASE ,URINE 1+ (NEGATIVE); NITRITE,URINE NEGATIVE (NEGATIVE); PH,URINE 6 (5-9); PROTEIN,URINE 1+ (NEGATIVE); UROBILINOGEN,URINE NORMAL (NORMAL)
[2019-04-11 19:36] LABS: BACTERIA,URINE MODERATE /HPF
--- NOTE | 2019-04-11 19:57 | NUR ---
Patient awake and alert. Patient complains of a headache. Dr. Quinteros in room with patient. Vital signs stable.
[2019-04-11] MEDS ORDERED: MULT-974 PO (20:01)
[2019-04-11] MEDS ORDERED: NS IV 1000 ML 1,000 ML IV ONE (20:05)
[2019-04-11] MEDS ORDERED: cefTRIAXone FOR IV USE 1,000 MG in WATER (STERILE) FOR INJECTION 10 ML IV ONE (20:15)
[2019-04-11] MEDS ORDERED: ACETAMINOPHEN 500 MG TAB (TYLENOL) PO ONE (20:15)
--- NOTE | 2019-04-11 20:24 | NUR ---
Oral Therapist notified that patient will be admitted and bed needed.
[2019-04-11 21:14] VITALS: BP 89/51
--- NOTE | 2019-04-11 21:30 | NUR ---
abhay calabrese admitted to room 415-1, with an admitting diagnosis of sepsis, uti,generalized abd pain , on 04/11/19 from ED via wheelchair.ABHAY CALABRESE introduced to surroundings, call light, bed controls, phone, TV, temperature control, lights, meal times, smoking policy, visitor policy, side rail policy, bathrooms and showers. Patient Rights given to patient in the handbook.ABHAY CALABRESE verbalizes understanding that [facility] is not responsible for the loss or damage to any personal effects or valuables that are kept in the patients posession during their hospitalization. ABHAY CALABRESE verbalizes understanding of Interdisciplinary Patient Education.
[2019-04-11] MEDS ORDERED: ACETAMINOPHEN 500 MG TAB (TYLENOL) PO PRN (22:15)
[2019-04-11] MEDS: NS IV 1000 ML 1,000 ML IV SCH (22:22)
[2019-04-11] MEDS: FAMOTIDINE 20 MG (PEPCID) TABLET PO SCH (23:15)
[2019-04-12] VITALS (9 sets, daily range): BP systolic 81–102; BP diastolic 51–96
[2019-04-12] MEDS: IBUPROFEN 600 MG (MOTRIN) TAB PO PRN ×3 (01:26→18:51)
[2019-04-12] MEDS: NS IV 1000 ML 1,000 ML IV SCH ×3 (05:14→21:05)
[2019-04-12 05:55] LABS: BASOPHILS % (AUTO) 0 % (0-10); EOSINOPHILS % (AUTO) 0 % (0-10); HEMATOCRIT 34 % (35-52); HEMOGLOBIN 11.8 G/DL (11.5-16.0); LYMPHOCYTES # (AUTO) 1.1 X 10^3 (1.0-4.0); LYMPHOCYTES % (AUTO) 23 % (12-44); MEAN CORPUSCULAR HEMOGLOBIN 32 PG (25-34); MEAN CORPUSCULAR HGB CONC 35 G/DL (32-36); MEAN CORPUSCULAR VOLUME 91 FL (80-99); MEAN PLATELET VOLUME 9.5 FL (7.4-10.4); MONOCYTES # (AUTO) 0.2 X 10^3 (0.0-1.0); MONOCYTES % (AUTO) 5 % (0-12); NEUTROPHILS # (AUTO) 3.4 X 10^3 (1.8-7.8); NEUTROPHILS % (AUTO) 72 % (42-75); PLATELET COUNT 146 10^3/uL (130-400); RED CELL DISTRIBUTION WIDTH 11.7 % (10.0-14.5); WHITE BLOOD COUNT 4.7 10^3/uL (4.3-11.0)
[2019-04-12 06:33] LABS: BUN/CREATININE RATIO 12; CALCIUM 7.9 MG/DL (8.5-10.1); CARBON DIOXIDE 21 MMOL/L (21-32); CHLORIDE 112 MMOL/L (98-107); GFR ESTIMATED > 60; GLUCOSE 87 MG/DL (70-105); POTASSIUM 3.6 MMOL/L (3.6-5.0); SODIUM 139 MMOL/L (135-145)
[2019-04-12] MEDS: ONDANSETRON 4 MG/2 ML (SDV) Z0FRAN IV PRN ×2 (07:54→18:55)
[2019-04-12] MEDS: FAMOTIDINE 20 MG (PEPCID) TABLET PO SCH ×2 (07:55→19:58)
[2019-04-12] MEDS ORDERED: OXYC-529 PO (08:30)
[2019-04-12] MEDS ORDERED: CYCL10TA9 PO (08:30)
--- NOTE | 2019-04-12 08:31 | NUR ---
PATIENT STATES THE ONLY MEDICATIONS SHE TAKES ON A REGULAR BASIS IS A [employer] DAILY OTC. SHE HAS OXYCODONE AND CYCLOBENZAPRINE SHE TAKES NEEDED FOR BACK PAIN MAINLY JUST AT BEDTIME BUT DOES NOT TAKE THEM VERY OFTEN.
[2019-04-12] MEDS ORDERED: FLEET ENEMA ADULT 1 EA BTL PR NR (11:00)
[2019-04-12] MEDS ORDERED: CYCLOBENZAPRINE 10 MG (FLEXERIL) TAB PO PRN (12:15)
--- NOTE | 2019-04-12 13:00 | NUR ---
T=100.7 P=60 RESP=20 BP=98/60 MOTRIN GIVEN
--- NOTE | 2019-04-12 14:45 | NUR ---
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
--- NOTE | 2019-04-12 15:30 | NUR ---
T-97 P-62 BP-81/51 RESP=18 O2 SAT=99 % ON R/A. DR. COTTRELL NOTIFIED. NEW ORDER'S NOTED. DENIES DIZZINESS. IN BED RESTING. PUPILS EQUAL AND REACTIVE TO LIGHT TONEY AT 2 +.
[2019-04-12] MEDS ORDERED: NS IV 1000 ML 1,000 ML IV STA (15:33)
[2019-04-12] MEDS ORDERED: NS IV 1000 ML 2,177.25 ML IV ONE (15:45)
[2019-04-12] MEDS ORDERED: PIPERACILLIN/TAZO 4.5 GM/NS 100 ML IV NR ×2 (15:45)
--- NOTE | 2019-04-12 15:45 | NUR ---
BOLUS OF NORMAL SALINE INFUSING PER DR. CORREIA'S.
--- NOTE | 2019-04-12 15:48 | History & Physicial ([facility]) ---
HPI History of Present Illness: 38 yo F that presented with worsening abdominal pain and fatigue. Patient states that she had a fever of 104 at home and then she was able to get it down to 102 with treatment, temp on arrival was 101. Patient has h/o gastric sleeve last year. States that she has not had a BM for the last 6 days and does not feel like she needs to have one. States that she has had dysuria but has not been able to pee much for the last two days. Urine is very concentrated and she is only able to emtpy small amounts. Decreased appetite. Denies any N/V. No sick contacts at home. [id number] by nurse with fever and blood pressure 80/50s. Severe sepsis order set started. 30 mg/kg fluids started. Repeat LA and labs and added Zosyn, Stat CT ordered. Source: patient Exam Limitations: no limitations Date seen by provider: Apr 12, 2019 Time Seen by Provider: 09:00 Attending Physician Alyssa Christianson MD PCP Alyssa Christianson MD Consult Date of Admission Apr 11, 2019 at 20:06 Home Medications Home Medications Reviewed patient Home Medication Reconciliation performed by pharmacy medication reconciliations residential pest control technician and/or nursing. Patients Allergies have been reviewed. Allergies Coded Allergies: No Known Drug Allergies (Unverified , 04/11/19) VJY-Dfgynu-Yjwzoe Hx Patient Social History Living Status: Lives with and son Alcohol Use: Rarely Uses Recreational Drug Use: No Smoking Status: Former Smoker Type Used: Cigarettes 2nd Hand Smoke Exposure: Yes Recent Foreign Travel: No Contact w/other who traveled: No Recent Hopitalizations: No Recent Infectious Disease Expo: No Immunizations Up To Date Tetanus Booster (TDap): Unknown Date of Influenza Vaccine: Jul 31, 2013 Past Medical History Scoliosis Anxiety ADHD Obesity, BMI 42 Tobacco Abuse Depression Chronic Pain Past Surgical Hx: Ectopic 2007 D&C 2009 Right Meniscus Repair 2012 T&A, Myringotomy Tubes 1989 Cardiac Cath, no intervention - 2007 Dental Surgery - 1985 Partial Hysterectomy, Bladder Repair, Umbilical Hernia Repair - 2018 Family Medical History Significant Family History: Heart Disease, CAD Under 55 Years Old Family History: Cardiovascular disease 19 FATHER Hypertension 19 FATHER Thyroid disease G8 SISTER Review of Systems ([facility]) Constitutional: chills, fever, malaise EENTM: no symptoms reported; No mouth pain, No nose congestion, No throat pain Respiratory: no symptoms reported; No cough, No dyspnea on exertion, No short of breath Cardiovascular: no symptoms reported; No chest pain, No edema, No palpitations Gastrointestinal: abdominal pain, constipation, loss of appetite; No nausea, No vomiting Genitourinary: dysuria, hesitancy : No Musculoskeletal: back pain (chronic) Skin: no symptoms reported; No lesions, No rash Psychiatric/Neurological: No Symptoms Reported Reviewed Test Results Reviewed Test Results Lab Laboratory Tests Test 04/11/19 18:41 04/11/19 19:08 04/12/19 05:10 Range/Units White Blood Count 6.6 4.7 4.3-11.0 10^3/uL Red Blood Count 4.03 L 3.70 L 4.35-5.85 10^6/uL Hemoglobin 13.1 11.8 11.5-16.0 G/DL Hematocrit 37 34 L 35-52 % Mean Corpuscular Volume 92 91 80-99 FL Mean Corpuscular Hemoglobin 33 32 25-34 PG Mean Corpuscular Hemoglobin Concent 36 35 32-36 G/DL Red Cell Distribution Width 11.7 11.7 10.0-14.5 % Platelet Count 175 146 130-400 10^3/uL Mean Platelet Volume 9.4 9.5 7.4-10.4 FL Neutrophils (%) (Auto) 78 H 72 42-75 % Lymphocytes (%) (Auto) 18 23 12-44 % Monocytes (%) (Auto) 4 5 0-12 % Eosinophils (%) (Auto) 0 0 0-10 % Basophils (%) (Auto) 0 0 0-10 % Neutrophils # (Auto) 5.2 3.4 1.8-7.8 X 10^3 Lymphocytes # (Auto) 1.2 1.1 1.0-4.0 X 10^3 Monocytes # (Auto) 0.2 0.2 0.0-1.0 X 10^3 Eosinophils # (Auto) 0.0 0.0 0.0-0.3 10^3/uL Basophils # (Auto) 0.0 0.0 0.0-0.1 10^3/uL Sodium Level 140 139 135-145 MMOL/L Potassium Level 4.2 3.6 3.6-5.0 MMOL/L Chloride Level 107 112 H 98-107 MMOL/L Carbon Dioxide Level 22 21 21-32 MMOL/L Anion Gap 11 6 5-14 MMOL/L Blood Urea Nitrogen 10 7 7-18 MG/DL Creatinine 0.73 0.60 0.60-1.30 MG/DL Estimat Glomerular Filtration Rate > 60 > 60 BUN/Creatinine Ratio 14 12 Glucose Level 99 87 70-105 MG/DL Lactic Acid Level 0.95 0.50-2.00 MMOL/L Calcium Level 9.2 7.9 L 8.5-10.1 MG/DL Corrected Calcium 9.3 8.5-10.1 MG/DL Magnesium Level 1.6 L 1.8-2.4 MG/DL Total Bilirubin 0.4 0.1-1.0 MG/DL Aspartate Amino Transf (AST/SGOT) 18 5-34 U/L Alanine Aminotransferase (ALT/SGPT) 16 0-55 U/L Alkaline Phosphatase 66 40-136 U/L C-Reactive Protein High Sensitivity 5.92 H 0.00-0.50 MG/DL Total Protein 6.6 6.4-8.2 GM/DL Albumin 3.9 3.2-4.5 GM/DL Lipase 22 8-78 U/L Urine Color YELLOW Urine Clarity CLEAR Urine pH 6 5-9 Urine Specific Bowers 1.025 H 1.016-1.022 Urine Protein 1+ H NEGATIVE Urine Glucose (UA) NEGATIVE NEGATIVE Urine Ketones NEGATIVE NEGATIVE Urine Nitrite NEGATIVE NEGATIVE Urine Bilirubin NEGATIVE NEGATIVE Urine Urobilinogen NORMAL NORMAL MG/DL Urine Leukocyte Esterase 1+ H NEGATIVE Urine RBC (Auto) 4+ H NEGATIVE Urine RBC NONE /HPF Urine WBC 2-5 /HPF Urine Squamous Epithelial Cells 2-5 /HPF Urine Crystals NONE /LPF Urine Bacteria MODERATE H /HPF Urine Casts NONE /LPF Urine Mucus SMALL H /LPF Urine Culture Indicated YES Physical Exam-([facility]) Physical Exam Vital Signs VS - Last 72 Hours, by Label 04/11/19 04/11/19 04/11/19 04/11/19 18:28 20:20 21:07 21:14 Temp 101.3 101.3 100.1 99.4 Pulse 108 71 81 Resp 20 16 18 B/P (MAP) 119/70 (86) 103/61 (75) 89/51 Pulse Ox 97 100 100 O2 Delivery Room Air Room Air 04/11/19 04/12/19 04/12/19 04/12/19 21:52 00:44 00:45 04:00 Temp 98.4 98.4 97.5 Pulse 75 75 64 Resp 18 18 20 B/P (MAP) 96/64 (75) 96/64 (75) 92/60 (71) Pulse Ox 100 97 97 97 O2 Delivery Room Air 04/12/19 04/12/19 04/12/19 04/12/19 04:00 08:00 08:00 12:00 Temp 97.5 97.4 99.1 Pulse 64 78 78 Resp 20 20 18 B/P (MAP) 92/60 (71) 95/64 (74) 102/96 (98) Pulse Ox 97 100 96 O2 Delivery Room Air Room Air 04/12/19 04/12/19 13:00 15:28 Temp 100.7 98.2 Pulse 60 Resp 20 B/P (MAP) 81/51 (61) Pulse Ox 97 O2 Delivery Room Air Capillary Refill : Less Than 3 Seconds General Appearance: WD/WN, no apparent distress HEENT: PERRL/EOMI, pharynx normal Neck: non-tender, full range of motion, supple Respiratory: chest non-tender, lungs clear, normal breath sounds, no respiratory distress, no accessory muscle use Cardiovascular: normal peripheral pulses, regular rate, rhythm, no edema, no murmur Gastrointestinal: normal bowel sounds, soft; No guarding; tenderness (RLQ ttp, mild umbilical pain) Back: no CVA tenderness Extremities: normal range of motion, no pedal edema, no calf tenderness 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, no motor/sensory deficits, alert, normal mood/affect, oriented x 3 Skin: normal color, warm/dry Lymphatic: no adenopathy Assessment/Plan Assessment/Plan Admission Status: Observation (1) Generalized abdominal pain Status: Acute Assessment & Plan: - Recurrent fever and low blood pressure this afternoon, sepsis order set use, Zosyn added, 30mg/kg fluids started, Stat CT abd/pelvis, Repeat LA/CBC/CMP/Amylase/Lipase, continue rocephin (2) Sepsis Status: Acute Assessment & Plan: - See Above Qualifiers: Qualified Codes: A41.9 - Sepsis, unspecified organism (3) Urinary tract infection Status: Acute Qualifiers: Qualified Codes: N39.0 - Urinary tract infection, site not specified (4) Scoliosis Status: Acute Assessment & Plan: - Continue home pain meds Clinical Quality Measures DVT/VTE Risk/Contraindication: Risk Factor Score Per Nursin RFS Level Per Nursing on Admit: 4+=Very High Copy Copies To 1: ALYSSA CHRISTIANSON MD, HOLLY R MD Apr 12, 2019 15:48
[2019-04-12] MEDS ORDERED: IOHEXOL 350 MG/ML 100 ML (OMNIPAQUE 350) VIAL IV ONE (16:00)
[2019-04-12] MEDS ORDERED: NS 100 ML (IVPB) BAG IV ONE (16:00)
[2019-04-12] MEDS ORDERED: HOLD METFORMIN - RECEIVED CONTRAST 20 ML VIAL IV SCH (16:00)
[2019-04-12] MEDS ORDERED: CATHETER FLUSH 10 ML SYR IV PRN (16:00)
--- NOTE | 2019-04-12 16:00 | NUR ---
BP=91/68 P=66 RESP-18 O2 SAT=98 % ON R/A TEMP=97
[2019-04-12 16:11] LABS: BASOPHILS % (AUTO) 0 % (0-10); EOSINOPHILS % (AUTO) 0 % (0-10); HEMATOCRIT 33 % (35-52); HEMOGLOBIN 11.5 G/DL (11.5-16.0); LYMPHOCYTES # (AUTO) 1.2 X 10^3 (1.0-4.0); LYMPHOCYTES % (AUTO) 29 % (12-44); MEAN CORPUSCULAR HEMOGLOBIN 32 PG (25-34); MEAN CORPUSCULAR HGB CONC 35 G/DL (32-36); MEAN CORPUSCULAR VOLUME 91 FL (80-99); MEAN PLATELET VOLUME 9.3 FL (7.4-10.4); MONOCYTES # (AUTO) 0.2 X 10^3 (0.0-1.0); MONOCYTES % (AUTO) 5 % (0-12); NEUTROPHILS # (AUTO) 2.6 X 10^3 (1.8-7.8); NEUTROPHILS % (AUTO) 66 % (42-75); PLATELET COUNT 147 10^3/uL (130-400); RED CELL DISTRIBUTION WIDTH 11.8 % (10.0-14.5)
[2019-04-12 16:26] LABS: ALANINE AMINOTRANSFERASE 15 U/L (0-55); ALBUMIN 3.1 GM/DL (3.2-4.5); ALKALINE PHOSPHATASE 53 U/L (40-136); AMYLASE 29 U/L (25-125); BILIRUBIN,TOTAL 0.3 MG/DL (0.1-1.0); BUN/CREATININE RATIO 11; CALCIUM 7.8 MG/DL (8.5-10.1); CARBON DIOXIDE 23 MMOL/L (21-32); CHLORIDE 112 MMOL/L (98-107); CREATININE SERUM 0.63 MG/DL (0.60-1.30); GFR ESTIMATED > 60; GLUCOSE 90 MG/DL (70-105); LIPASE 25 U/L (8-78); POTASSIUM 3.6 MMOL/L (3.6-5.0); SODIUM 138 MMOL/L (135-145); TOTAL PROTEIN 5.1 GM/DL (6.4-8.2)
--- NOTE | 2019-04-12 18:04 | Diagnostic Imaging Report ---
PROCEDURE: CT abdomen and pelvis with contrast. TECHNIQUE: Multiple contiguous axial images were obtained through the abdomen and pelvis after administration of intravenous contrast. Auto Exposure Controls were utilized during the CT exam to meet ALARA standards for radiation dose reduction. INDICATION: Abdominal pain and fever. Low blood pressure. COMPARISON: CT angio chest, abdomen, and pelvis performed on 09/20/2017 as well as multiple additional priors. FINDINGS: There is mild subsegmental atelectasis in both lower lobes. No pleural effusion. The visualized heart is normal in size. The liver, gallbladder, spleen, pancreas, and adrenal glands are normal. There is no biliary or pancreatic ductal dilatation. The kidneys are symmetric in size and demonstrate normal enhancement, without evidence of renal calculus, hydronephrosis, or suspicious renal mass. The visualized ureters are normal. The patient is status post gastric sleeve surgery. The colon and small bowel are normal in course and caliber, without evidence of wall thickening or obstruction. There is moderate liquid stool noted throughout the colon. Mild hyperenhancement is demonstrated involving the colon and several loops of small bowel. No significant inflammatory change is noted adjacent to the involved bowel loops. No pneumoperitoneum, abdominal free fluid, or loculated collection. Scattered mildly prominent mesenteric lymph nodes are demonstrated throughout the small bowel mesentery, possibly reactive in nature. No retroperitoneal or inguinal lymphadenopathy is appreciated. There is mild atherosclerotic calcification involving the abdominal aorta, without aneurysmal dilatation. There is no evidence of venous thrombosis. Incidental note is made of a retroaortic left renal vein, a normal variant. The bladder is normal, within the limits of underdistention. The uterus is surgically absent. There is a small amount of free fluid layering in the posterior pelvis. There is a left adnexal cystic mass measuring 2.7 x 3.0 cm (image 69 series 2). The abdominal wall is unremarkable. There is moderate S-shaped scoliosis of the thoracolumbar spine. No acute osseous abnormality is demonstrated. IMPRESSION: Mild hyperenhancement of the colon and scattered loops of small bowel, with diffuse liquid stool noted throughout the colon. Findings are nonspecific and can be seen in enterocolitis and/or diarrheal illness. There is no evidence of obstruction, bowel wall thickening, pneumoperitoneum, or abscess formation. A cystic structure is demonstrated in the left adnexa measuring up to 3 cm, likely reflecting an ovarian cyst. In a woman of reproductive age, this is almost certainly benign. No further follow-up is recommended, unless otherwise clinically indicated. Trace pelvic free fluid, which may be reactive in nature to the bowel process, or possibly physiologic in nature. Dictated by: Dictated on workstation # [id number]
[2019-04-12] MEDS ORDERED: cefTRIAXone 1,000 MG/SWFI 10 ML IV PUSH IV SCH ×2 (20:00)
[2019-04-12] MEDS: PIPERACILLIN/TAZOBACTAM (BULK) 4.5 GM in NS (IVPB) 100 ML IV SCH (22:07)
[2019-04-13 00:50] VITALS: BP 94/62
[2019-04-13 04:00] VITALS: BP 99/68
[2019-04-13] MEDS: NS IV 1000 ML 1,000 ML IV SCH ×3 (04:04→13:43)
[2019-04-13] MEDS: PIPERACILLIN/TAZOBACTAM (BULK) 4.5 GM in NS (IVPB) 100 ML IV SCH ×2 (05:42→14:22)
[2019-04-13 06:40] LABS: BASOPHILS % (AUTO) 0 % (0-10); EOSINOPHILS % (AUTO) 1 % (0-10); HEMATOCRIT 30 % (35-52); HEMOGLOBIN 10.5 G/DL (11.5-16.0); LYMPHOCYTES # (AUTO) 1.7 X 10^3 (1.0-4.0); LYMPHOCYTES % (AUTO) 53 % (12-44); MEAN CORPUSCULAR HEMOGLOBIN 32 PG (25-34); MEAN CORPUSCULAR HGB CONC 35 G/DL (32-36); MEAN CORPUSCULAR VOLUME 92 FL (80-99); MEAN PLATELET VOLUME 9.3 FL (7.4-10.4); MONOCYTES # (AUTO) 0.4 X 10^3 (0.0-1.0); MONOCYTES % (AUTO) 12 % (0-12); NEUTROPHILS # (AUTO) 1.1 X 10^3 (1.8-7.8); NEUTROPHILS % (AUTO) 34 % (42-75); PLATELET COUNT 126 10^3/uL (130-400); RED CELL DISTRIBUTION WIDTH 11.9 % (10.0-14.5); WHITE BLOOD COUNT 3.2 10^3/uL (4.3-11.0)
[2019-04-13 07:00] LABS: ALANINE AMINOTRANSFERASE 13 U/L (0-55); ALBUMIN 2.7 GM/DL (3.2-4.5); ALKALINE PHOSPHATASE 44 U/L (40-136); BILIRUBIN,TOTAL 0.2 MG/DL (0.1-1.0); BUN/CREATININE RATIO 10; CALCIUM 7.7 MG/DL (8.5-10.1); CARBON DIOXIDE 19 MMOL/L (21-32); CHLORIDE 115 MMOL/L (98-107); CREATININE SERUM 0.62 MG/DL (0.60-1.30); GFR ESTIMATED > 60; GLUCOSE 76 MG/DL (70-105); POTASSIUM 3.6 MMOL/L (3.6-5.0); SODIUM 139 MMOL/L (135-145); TOTAL PROTEIN 4.5 GM/DL (6.4-8.2)
[2019-04-13 08:00] VITALS: BP 88/55
[2019-04-13] MEDS: FAMOTIDINE 20 MG (PEPCID) TABLET PO SCH (08:24)
[2019-04-13] MEDS: ONDANSETRON 4 MG/2 ML (SDV) Z0FRAN IV PRN (08:31)
[2019-04-13] MEDS: IBUPROFEN 600 MG (MOTRIN) TAB PO PRN (08:35)
[2019-04-13 09:00] VITALS: BP 91/62
[2019-04-13 12:01] VITALS: BP 90/61
--- NOTE | 2019-04-13 15:33 | Discharge Summary ---
Diagnosis/Chief Complaint Date of Admission Apr 11, 2019 at 20:06 Date of Discharge Discharge Diagnosis Problems/Diagnosis: (1) Generalized abdominal pain Assessment & Plan: - Recurrent fever and low blood pressure this afternoon, sepsis order set use, Zosyn added, 30mg/kg fluids started, Stat CT abd/pelvis, Repeat LA/CBC/CMP/Amylase/Lipase, continue rocephin Status: Acute (2) Sepsis Assessment & Plan: - See Above Qualifiers: Qualified Codes: A41.9 - Sepsis, unspecified organism Status: Acute (3) Urinary tract infection Qualifiers: Qualified Codes: N39.0 - Urinary tract infection, site not specified Status: Acute (4) Scoliosis Assessment & Plan: - Continue home pain meds Status: Acute Chief Complaint/HPI Chief Complaint/HPI 38 yo F that presented with worsening abdominal pain and fatigue. Patient states that she had a fever of 104 at home and then she was able to get it down to 102 with treatment, temp on arrival was 101. Patient has h/o gastric sleeve last year. States that she has not had a BM for the last 6 days and does not feel like she needs to have one. States that she has had dysuria but has not been able to pee much for the last two days. Urine is very concentrated and she is only able to emtpy small amounts. Decreased appetite. Denies any N/V. No sick contacts at home. [id number] by nurse with fever and blood pressure 80/50s. Severe sepsis order set started. 30 mg/kg fluids started. Repeat LA and labs and added Zosyn, Stat CT ordered. Discharge Summary-Simple/Stand Consultations Discharge Physical Examination Allergies: Coded Allergies: No Known Drug Allergies (Unverified , 04/11/19) Vitals & I&Os Vital Sign - Last 12Hours Date Time Temp Pulse Resp B/P (MAP) Pulse Ox O2 Delivery O2 Flow Rate FiO2 04/13/19 12:01 97.0 78 20 90/61 (71) 98 Room Air Intake and Output 04/13/19 00:00 Intake Total 3310 ml Output Total 1400 ml Balance 1910 ml Hospital Course See final discharge diagnosis. Discharge Instructions to patient/family Please see electronic discharge instructions given to patient. Discharge Medications Reviewed and agree with Discharge Medication list on patient's Discharge Instruction sheet Clinical Quality Measures DVT/VTE Risk/Contraindication: Risk Factor Score Per Nursin RFS Level Per Nursing on Admit: 4+=Very High ALYSSA COTTRELL MD Apr 13, 2019 15:33
[2019-04-13] MEDS ORDERED: METR-145 PO (15:35)
--- NOTE | 2019-04-13 15:37 | Discharge Instructions ---
Discharge [facility] Discharge Medications New, Converted or Re-Newed RX: Transmitted to Pharmacy New Medications: Metronidazole (Metronidazole) 500 Mg Tablet 500 MG PO BID for 7 Days, #14 TAB Continued Medications: Cyclobenzaprine HCl (Cyclobenzaprine HCl) 10 Mg Tablet 10 MG PO HS PRN for BACK PAIN, TAB Multivitamin (Multi-Vitamin Daily) 1 Each Tablet 1 TAB PO DAILY, TAB Oxycodone HCl (Oxycodone HCl) 5 Mg Tablet 5-10 MG PO HS PRN for BACK PAIN, TAB Patient Instructions Goal/Follow Up Appt: You will be called with a [facility] f. appt with Dr Christianson for next week Activity & Diet Discharge Diet: Eat Small Frequent Meals Activity as Tolerated: Yes Orders-Post D/C & Referrals Pneu Vac Indicated: Yes Copy Copies To 1: ALYSSA CHRISTIANSON MD, HOLLY R MD Apr 13, 2019 15:36
[2019-04-13 16:43] VITALS: BP 102/59
--- NOTE | 2019-04-13 17:00 | NUR ---
BÁRBARA HYMAN demonstrates understanding of discharge instructions and accurately returns instructions upon questioning. Copy of Post-Discharge Instructions given to pt. BÁRBARA HYMAN is able to manage continuing needs after discharge. Patients belongings returned to pt. Patient discharged from [facility] on 04/13/19 at 1700. BÁRBARA HYMAN left floor via w/c, accompanied by staff and family per auto.
== END 2019-04-13 15:36 | disposition home or self-care (01) ==
LOC: EDUNIT# 18:25 → ER 18:26 → UNDOADMOB 20:06 → 4TH 20:06 → UNDODISOB 04-13 17:00
PROVIDERS: ADMIT Family Medicine; ATTEND Family Medicine
DX: A41.9 Sepsis, unspecified organism (principal); N39.0 Urinary tract infection, site not specified; M41.9 Scoliosis, unspecified; R10.84 Generalized abdominal pain; Z98.84 Bariatric surgery status; Z87.891 Personal history of nicotine dependence; F41.9 Anxiety disorder, unspecified; F90.9 Attention-deficit hyperactivity disorder, unspecified type; F32.9 Major depressive disorder, single episode, unspecified; G89.29 Other chronic pain; E66.9 Obesity, unspecified; Z68.41 Body mass index [BMI] 40.0-44.9, adult; R01.1 Cardiac murmur, unspecified; K21.9 Gastro-esophageal reflux disease without esophagitis; K59.00 Constipation, unspecified; M54.9 Dorsalgia, unspecified
CPT/HCPCS: 36415; 71046; 74019; 74177; 80048; 80053; 81000; 82150; 82274; 83605; 83690; 83735; 85025; 86141; 87015; 87040; 87045; 87046; 87088; 87328; 87329; 87899; 94664; 96361; 96365; G0378

== ENCOUNTER 2019-11-25 08:09 | Emergency (ER) | payer BC ==
[~2019-11-25] VITALS: Ht 160 cm; Wt 170.0 kg
[~2019-11-25 08:09] MED LIST changes: +CYCL10TA9 PO; +METR-145 PO; +MULT-974 PO; +OXYC-529 PO
[2019-11-25] MEDS ORDERED: NS IV 1000 ML 1,000 ML ONE (08:28)
[2019-11-25] MEDS ORDERED: ONDANSETRON 4 MG/2 ML (SDV) Z0FRAN ONE (08:28)
[2019-11-25] MEDS ORDERED: fentaNYL INJECTION 100 MCG/2 ML AMP ONE (08:29)
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
[2019-11-25] MEDS ORDERED: NS IV 1000 ML 1,000 ML IV ONE (08:33)
[2019-11-25] MEDS ORDERED: TETRACAINE 0.5% OPHTH SOLN 4 ML BTL (SINGLE DOSE ONLY) OU ONE (08:45)
[2019-11-25] MEDS ORDERED: BSS 15 ML IR ONE (08:45)
[2019-11-25] MEDS ORDERED: ONDANSETRON 4 MG/2 ML (SDV) Z0FRAN IVP ONE ×2 (08:45→10:30)
[2019-11-25] MEDS ORDERED: fentaNYL INJECTION 100 MCG/2 ML AMP IVP ONE (08:45)
[2019-11-25] MEDS ORDERED: FLUORESCEIN (FLUOR-I-STRIPS) 1 MG STRP OU ONE (08:45)
[2019-11-25 08:46] LABS: BASOPHILS % (AUTO) 0 % (0-10); EOSINOPHILS % (AUTO) 0 % (0-10); HEMATOCRIT 35 % (35-52); HEMOGLOBIN 12.4 G/DL (11.5-16.0); LYMPHOCYTES # (AUTO) 1.2 X 10^3 (1.0-4.0); LYMPHOCYTES % (AUTO) 6 % (12-44); MEAN CORPUSCULAR HEMOGLOBIN 32 PG (25-34); MEAN CORPUSCULAR HGB CONC 36 G/DL (32-36); MEAN CORPUSCULAR VOLUME 88 FL (80-99); MEAN PLATELET VOLUME 9.2 FL (7.4-10.4); MONOCYTES % (AUTO) 5 % (0-12); NEUTROPHILS # (AUTO) 18.6 X 10^3 (1.8-7.8); NEUTROPHILS % (AUTO) 89 % (42-75); PLATELET COUNT 255 10^3/uL (130-400); RED CELL DISTRIBUTION WIDTH 12.1 % (10.0-14.5); WHITE BLOOD COUNT 20.8 10^3/uL (4.3-11.0)
[2019-11-25 09:00] LABS: ALANINE AMINOTRANSFERASE 18 U/L (0-55); ALBUMIN 4.3 GM/DL (3.2-4.5); ALKALINE PHOSPHATASE 55 U/L (40-136); BILIRUBIN,TOTAL 0.4 MG/DL (0.1-1.0); BUN/CREATININE RATIO 8; CALCIUM 8.9 MG/DL (8.5-10.1); CARBON DIOXIDE 18 MMOL/L (21-32); CHLORIDE 108 MMOL/L (98-107); CREATINE KINASE 1464 U/L (29-168); CREATININE SERUM 0.75 MG/DL (0.60-1.30); GFR ESTIMATED > 60; GLUCOSE 110 MG/DL (70-105); POTASSIUM 3.5 MMOL/L (3.6-5.0); SODIUM 140 MMOL/L (135-145)
[2019-11-25] MEDS ORDERED: IOHEXOL 350 MG/ML 100 ML (OMNIPAQUE 350) VIAL IV ONE (09:15)
[2019-11-25] MEDS ORDERED: HOLD METFORMIN - RECEIVED CONTRAST 20 ML VIAL IV SCH (09:15)
[2019-11-25] MEDS ORDERED: NS 100 ML (IVPB) BAG IV ONE (09:15)
[2019-11-25 09:17] LABS: BAND NEUTROPHILS 0 %; BASOPHILS % (MANUAL) 0 %; EOSINOPHILS % (MANUAL) 0 %; LYMPHOCYTES % (MANUAL) 5 %; MONOCYTES % (MANUAL) 6 %; NEUTROPHILS % (MANUAL) 89 %; RBC MORPH NORMAL
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
--- NOTE | 2019-11-25 09:20 | NUR ---
PT BACK FROM CT AT THIS TIME. PT REPORTS ONE EPISODE OF VOMITING AND INCREASED DIZZINESS WHILE IN CT.
--- NOTE | 2019-11-25 09:25 | NUR ---
OFFICER [employer] FROM [employer] IN ROOM WITH PT AND THIS RN AT THIS TIME DOCUMENTING PT INJURIES.
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
--- NOTE | 2019-11-25 10:00 | NUR ---
pt mother and brother at bedside.
[2019-11-25] MEDS ORDERED: KETOROLAC 30 MG/ML VIAL IVP STA (10:25)
[2019-11-25 10:31] LABS: BILIRUBIN,URINE NEGATIVE (NEGATIVE); CLARITY,URINE CLEAR; COLOR,URINE YELLOW; GLUCOSE, URINE (UA) NEGATIVE (NEGATIVE); KETONES,URINE NEGATIVE (NEGATIVE); LEUKOCYTE ESTERASE ,URINE NEGATIVE (NEGATIVE); NITRITE,URINE NEGATIVE (NEGATIVE); PROTEIN,URINE TRACE (NEGATIVE)
[2019-11-25 10:41] LABS: BACTERIA,URINE TRACE /HPF; SQUAMOUS EPITHELIAL CELL,UR 0-2 /HPF
[2019-11-25 10:45] LABS: AMPHETAMINE SCREEN, URINE NEGATIVE (NEGATIVE); BARBITURATE SCREEN URINE NEGATIVE (NEGATIVE); BENZODIAZEPINES SCREEN URINE NEGATIVE (NEGATIVE); CANNABINOID SCREEN, URINE NEGATIVE (NEGATIVE); COCAINE SCREEN URINE NEGATIVE (NEGATIVE); METHADONE STAT NEGATIVE (NEGATIVE); METHAMPHETAMINE SCREEN URINE S NEGATIVE (NEGATIVE); OPIATE SCREEN URINE NEGATIVE (NEGATIVE); OXYCODONE STAT NEGATIVE (NEGATIVE); PROPOXYPHENE STAT NEGATIVE (NEGATIVE); TRICYCLIC ANTIDEPRESSANTS SCRE NEGATIVE (NEGATIVE)
[2019-11-25] MEDS ORDERED: ACHD5005 PO (11:06)
[2019-11-25] MEDS ORDERED: ONDA4TAB11 PO (11:06)
[2019-11-25 11:32] VITALS: BP 94/63
== END 2019-11-25 11:34 | disposition home or self-care (01) ==
LOC: EDUNIT# 08:09 → ER 08:11
DX: S06.0X9A Concussion with loss of consciousness of unspecified duration, initial encounter (principal); S00.83XA Contusion of other part of head, initial encounter; S10.83XA Contusion of other specified part of neck, initial encounter; S30.1XXA Contusion of abdominal wall, initial encounter; S20.02XA Contusion of left breast, initial encounter; S20.222A Contusion of left back wall of thorax, initial encounter; S70.01XA Contusion of right hip, initial encounter; S00.432A Contusion of left ear, initial encounter; S60.221A Contusion of right hand, initial encounter; S50.311A Abrasion of right elbow, initial encounter; H11.32 Conjunctival hemorrhage, left eye; Z77.22 Contact with and (suspected) exposure to environmental tobacco smoke (acute) (chronic); Z87.891 Personal history of nicotine dependence; Z90.49 Acquired absence of other specified parts of digestive tract; Z90.89 Acquired absence of other organs; Z90.710 Acquired absence of both cervix and uterus; Z82.49 Family history of ischemic heart disease and other diseases of the circulatory system; Y04.8XXA Assault by other bodily force, initial encounter
CPT/HCPCS: 36415; 70450; 70486; 71260; 72125; 73080; 74177; 80053; 80306; 80320; 81000; 82550; 85007; 85027

== ENCOUNTER 2023-07-17 02:11 | Emergency (ER) | payer BC, MEDICAID ==
[~2023-07-17] VITALS: Ht 155 cm; Wt 67.0 kg
[~2023-07-17 02:11] MED LIST changes: +ACHD5005 PO; +CYCL10TA25 PO; -CYCL10TA9 PO; +ONDA4TAB11 PO; +OXC5T PO; -OXYC-529 PO
[2023-07-17 02:23] VITALS: BP 123/84
--- NOTE | 2023-07-17 02:47 | ED Head Injury ---
General Chief Complaint: Head/Cervical Problems Stated Complaint: HEAD INJURY-FALL Source: patient History of Present Illness Date Seen by Provider: Jul 17, 2023 Time Seen by Provider: 02:35 Initial Comments PT ARRIVES VIA POV FROM HOME PT STATES THAT 1 WEEK AGO, SHE HAD TAKEN HER DOG OUTSIDE AND TRIPPED OVER A LEAF BLOWER AND FELL FORWARD, HITTING HER HEAD ON CONCRETE NO LOSS OF CONSCIOUSNESS Allergies and Home Medications Allergies Coded Allergies: No Known Drug Allergies (Unverified , 04/11/19) Patient Home Medication List Cyclobenzaprine HCl (Cyclobenzaprine HCl) 10 Mg Tablet, 10 MG PO HS PRN for BACK PAIN, (Reported) Entered as Reported by: PEGGY BROOKS on 04/12/19 0830 Hydrocodone Bit/Acetaminophen (Lortab 5 Mg Tablet) 1 Tab Tab, 1 EACH PO Q4-6HR PRN for PAIN-MODERATE Prescribed by: SIMONA JUAREZ on 11/25/19 1106 Metronidazole (Metronidazole) 500 Mg Tablet, 500 MG PO BID Prescribed by: ALYSSA COTTRELL on 04/13/19 1535 Multivitamin (Multi-Vitamin Daily) 1 Each Tablet, 1 TAB PO DAILY, (Reported) Entered as Reported by: OLVIN CASILLAS on 04/11/192000 Ondansetron (Ondansetron Odt) 4 Mg Tab.rapdis, 4 MG PO Q6H PRN for NAUSEA/VOMITING Prescribed by: SIMONA JUAREZ on 11/25/19 110 Oxycodone Hcl (Oxyir Tablet) 5 Mg Tablet, 5-10 MG PO HS PRN for BACK PAIN, (Reported) Entered as Reported by: PEGGY BROOKS on 04/12/19 0830 Past Njmndun-Hrbali-Gezuys Hx Immunizations Up To Date Tetanus Booster (TDap): Less than 5yrs PED Vaccines UTD: Yes Seasonal Allergies Seasonal Allergies: No Past Medical History Surgeries: Yes (ECTOPIC , HEART CATH, RT KNEE scope x2, gastric sleev e) Abdominal, Adenoidectomy, Appendectomy, Cardiac, Ear Surgery, Hysterectomy, Orthopedic, Tonsillectomy Respiratory: No Cardiac: Yes (HEART CATH-NEGATIVE, ) Heart Murmur Neurological: No Reproductive Disorders: No Female Reproductive Disorders: Menstrual Problems, Ovarian Cyst [employer] History: Hysterectomy Sexually Transmitted Disease: No HIV/AIDS: No Genitourinary: Yes (CYSTOCELE) Gastrointestinal: Yes (UMBILICAL HERNIA) Gastroesophageal Reflux Musculoskeletal: Yes Scoliosis, Chronic Back Pain Endocrine: No HEENT: Yes Loss of Vision: Bilateral Hearing Impairment: Deaf Cancer: No Psychosocial: Yes ADD/ADHD, Sleep Difficulties Integumentary: No Blood Disorders: No Adverse Reaction/Blood Tranf: No (N/A) Family Medical History Cardiovascular disease 19 FATHER Hypertension 19 FATHER Thyroid disease G8 SISTER Heart Disease, CAD Under 55 Years Old Physical Exam Vital Signs Vital Signs - First Documented 07/17/23 02:23 Temp 37.0 Pulse 100 Resp 18 B/P (MAP) 123/84 (97) Pulse Ox 96 O2 Delivery Room Air Capillary Refill : Height, Weight, BMI Height: 5'2.00" Weight: 160lbs. 0.0oz. [id number]; 66.00 BMI Method:Actual Progress/Results/Core Measures Results/Orders My Orders Orders - FOSTER ROMANO DO Ct Head/Face/Cervical Wo (07/17/23 02:36) Vital Signs/I&O 07/17/23 02:23 Temp 37.0 Pulse 100 Resp 18 B/P (MAP) 123/84 (97) Pulse Ox 96 O2 Delivery Room Air Departure Impression Primary Impression: Head injury, acute, without loss of consciousness Additional Impressions: Headache Neck pain Disposition: 01 HOME, SELF-CARE Condition: Stable Departure-Patient Inst. Decision time for Depature: 03:41 Referrals: ALYSSA COTTRELL MD (PCP/Family) Primary Care Physician Patient Instructions: Neck Pain ED, Minor Head Injury, Adult ED, Headache, Adult ED Add. Discharge Instructions: HOME, REST MOIST HEAT TO SORE AREAS AT 20 MINUTE INTERVALS ACTIVITIES TOLERATED FOLLOW UP WITH YOUR DR IN 3-4 DAYS IF NO BETTER, RETURN TO ER IF WORSE All discharge instructions reviewed with patient and/or family. Voiced understanding. Scripts Ketorolac Tromethamine (Ketorolac Tromethamine) 10 Mg Tablet 10 MG PO Q6H for Pain, #15 TAB Prov: FOSTER ROMANO DO 07/17/23 Cyclobenzaprine HCl (Cyclobenzaprine HCl) 10 Mg Tablet 10 MG PO Q8H PRN for SPASMS, #15 TAB 0 Refills Prov: FOSTER ROMANO DO 07/17/23 FOSTER ROMANO DO Jul 17, 2023 02:47
[2023-07-17] MEDS ORDERED: RX-NAPROXEN (NAPROSYN) 250 MG TAB PPK#4 PO STA (03:46)
[2023-07-17] MEDS ORDERED: RX-CYCLOBENZAPRINE 10 MG (FLEXERIL) TAB PPK#3 PO STA (03:46)
[2023-07-17] MEDS ORDERED: CYCL10TA25 PO (03:48)
[2023-07-17] MEDS ORDERED: KETO10TA PO (03:48)
--- NOTE | 2023-07-17 06:39 | Diagnostic Imaging Report ---
PROCEDURE: CT head, face, and cervical spine without contrast. TECHNIQUE: Multiple contiguous axial images were obtained through the head, neck, and facial bones without the use of intravenous contrast. Sagittal and coronal reformations through the cervical spine and facial bones were also performed. Auto Exposure Controls were utilized during the CT exam to meet ALARA standards for radiation dose reduction. INDICATION: Trauma, head and neck pain secondary to recent fall, hit head. COMPARISON: 11/25/2019. FINDINGS: Stable tiny chronic lacunar infarction within the right cerebellar hemisphere. No intracranial hemorrhage. No intracranial mass, mass effect, midline shift, herniation, hydrocephalus, or extra-axial fluid collection. No CT evidence of an acute ischemic infarction. The orbits are unremarkable. Very minimal left forehead soft tissue scalp contusion. The calvarium is intact. The paranasal sinuses are clear. The lamina papyracea are intact. No temporomandibular joint dislocation. Minimal rightward nasal septal deviation with associated rightward projecting nasal spur. Degenerative changes of the temporomandibular joints. No acute facial fracture. Parapharyngeal fat is symmetric and well-maintained. Muscles of mastication are unremarkable. The orbits are unremarkable. Mild reversal of the normal cervical lordosis, minimally worsened since the prior examination. No significant anterolisthesis or retrolisthesis. Alignment of the atlantooccipital joint is well maintained. Vertebral body heights are well-maintained. Mild disc space height loss at C3/C4, C4/C5, and C5/C6. Minimal anterior osteophyte formation within the cervical spine. No acute fracture or dislocation. No destructive osseous process. No severe osseous central canal stenosis. No apical pneumothorax. IMPRESSION: No acute intracranial abnormality. No acute facial fracture. No acute fracture within the cervical spine. Minimal left forehead soft tissue scalp contusion without underlying calvarial fracture. Mild degenerative changes within the cervical spine with slight reversal of the normal cervical lordosis which is minimally worsened since 2020. I agree with the preliminary interpretation. Dictated by: Dictated on workstation # [id number]
== END 2023-07-17 03:58 | disposition home or self-care (01) ==
LOC: EDUNIT# 02:11 → ER 02:13
DX: S09.90XA Unspecified injury of head, initial encounter (principal); M54.2 Cervicalgia; W01.198A Fall on same level from slipping, tripping and stumbling with subsequent striking against other object, initial encounter
CPT/HCPCS: 70450; 70486; 72125